=== PATIENT | female | born 1940 | race Caucasian/White ===

== ENCOUNTER 2019-01-14 01:05 | Inpatient (IN) ==
[2019-01-14] MEDS ORDERED: MORPHINE IV ONE (01:08)
[2019-01-14] MEDS ORDERED: ZOFRAN IV ONE (01:08)
[2019-01-14] MEDS ORDERED: PEPCID IV ONE (01:08)
[2019-01-14] MEDS ORDERED: SODIUM CHLORIDE 0.9% INJ ONE (01:08)
[2019-01-14] MEDS ORDERED: NS 1,000 ML IV ONE (01:09)
[2019-01-14] MEDS ORDERED: HUMULIN R IV ONE (01:10)
[2019-01-14 01:50] LABS: BASO# 0.03 X1000 (0.0-0.2); BASO% 0.1 % (0.0-0.8); EOS# 0.03 X1000 (0.0-0.7); EOS% 0.1 % (0.0-10.0); HEMATOCRIT 47.3 % (37.0-47.0); HEMOGLOBIN 15.5 g/dL (12.0-16.0); IMM GRAN# 0.05 X1000 (0.0-0.04); IMM GRAN% 0.2 % (0.0-0.5); LYMPH# 1.46 X1000 (1.2-3.4); LYMPH% 7.1 % (20.5-51.1); MCH 28.3 PG (27-31); MCHC 32.8 g/dL (33-37); MCV 86.5 FL (81-99); MONO# 2.38 X1000 (0.11-0.59); MONO% 11.6 % (1.7-9.3); MPV 9.9 FL (7.4-10.4); NEUT# 16.59 X1000 (1.4-6.5); NEUT% 80.9 % (42.2-75.2); PLT 328 X1000 (130-400); RBC 5.47 XMIL (4.2-5.4); RDW 13.7 % (11.5-14.5); WBC 20.54 X1000 (4.8-10.8)
[2019-01-14] MEDS ORDERED: ZOSYN 3.375 GM in NS 50 ML IV ONE (01:51)
[2019-01-14 02:02] LABS: INR 1.04; PROTIME 14.1 Seconds (11.0-16.0)
[2019-01-14 02:24] LABS: ACETONE SERUM NEGATIVE (NEGATIVE)
[2019-01-14 02:26] LABS: AGAP 20; ALBUMIN 4.8 g/dL (3.5-5.0); ALKALINE PHOSPHATASE 85 U/L (32-104); BUN 21 mg/dL (8-22); CALCIUM 10.6 mg/dL (8.8-10.2); CHLORIDE 97 mmol/L (98-107); COSMO 298; CREATININE 0.7 mg/dL (0.5-0.9); ESTIMATED GFR > 60; GLUCOSE 355 mg/dL (70-104); GOT 27 U/L (10-30); GPT 31 U/L (10-36); LIPASE 80 U/L (13-60); MAGNESIUM 2.3 mg/dL (1.5-2.7); POTASSIUM 3.9 mmol/L (3.5-5.1); SODIUM 141 mmol/L (136-145); TCO2 24 mmol/L (25-35); TOTAL PROTEIN 7.9 g/dL (6.3-8.3)
[2019-01-14 02:38] LABS: BILIRUBIN URINE NEGATIVE (NEGATIVE); BLOOD URINE NEGATIVE (NEGATIVE); CLARITY CLEAR (CLEAR); COLOR YELLOW; KETONE URINE 1+(Small) mg/dL (NEGATIVE); LEUKOCYTES URINE NEGATIVE (NEGATIVE); NITRITE URINE NEGATIVE (NEGATIVE); PROTEIN URINE TRACE mg/dL (NEGATIVE); SP GRAVITY URINE 1.015; UROBILINOGEN URINE NORMAL
[2019-01-14 02:44] LABS: URINE BACTERIA 2+ /HFP; URINE EPITHELIAL CELLS <10 /HPF (<10); URINE RBC <10 /HPF (<10); URINE SOURCE CATH; URINE WBC <10 /HPF (<10)
--- NOTE | 2019-01-14 04:16 | PROVIDER DOCUMENTATION ---
This chart was entered by Taylor Juan Scribe, acting as scribe for Rohit Irene MD. HPI-Abdominal Pain/GI Problem - General Chief Complaint: Abdominal Pain Stated Complaint: abdominal pain Time Seen by Provider: 01/14/19 01:05 Source: patient Allergies/Adverse Reactions: Patient Allergies Allergy/AdvReac Type Severity Reaction Status Date / Time No Known Allergies Allergy Verified 01/14/19 01:15 Home Medications: Home Medication List Medication Instructions Recorded Confirmed Last Taken Type Dapagliflozin Propanediol [Farxiga] 10 mg PO DAILY 01/14/19 01/14/19 Unknown History Hydrochlorothiazide 25 mg PO DAILY 01/14/19 01/14/19 Unknown History Hydrocodone/APAP 5 mg/325 mg 1 tab PO DAILY PRN 01/14/19 01/14/19 Unknown History [[place]-5] Metformin HCl [Metformin HCl ER] 500 mg PO DAILY 01/14/19 01/14/19 Unknown History Metoprolol Succinate E.r. [Toprol 50 mg PO DAILY 01/14/19 01/14/19 Unknown History Xl] Omeprazole 20 mg PO DAILY 01/14/19 01/14/19 Unknown History Simvastatin 40 mg PO QHS 01/14/19 01/14/19 Unknown History Sitagliptin Phos/Metformin HCl 1 each PO DAILY 01/14/19 01/14/19 Unknown History [Janumet Xr 100-1,000 mg Tablet] - History of Present Illness-ABD Nature of Presenting Problems: pt is a 78 yr old female presenting via EMS with complaint of diffuse abdominal pain, nausea, vomiting(self-induced)pt reports hx of bowel obstruction and colon CA, last obstruction 2 yrs ago. pt admits last BM was yesterday, no passing gas since. pt is inducing vomiting to relieve pressure Abdominal Pain Onset Location: reports: generalized abdomen Pain Radiation: reports: no radiation Quality of Pain: reports: fullness, pressure Severity in ED: reports: severe Onset/Duration: reports: this afternoon Timing: reports: still present, getting worse Activities at Onset: reports: light activity Exposure to sick contacts?: No Modifying Factors: improves with: defecating (unable to produce bowel movement) , other medication (Zofran given by EMS with no relief), vomiting (minimal, brief relief). worse with: eating (unable to eat) Associated Symptoms: reports: constipation, loss of appetite, nausea, vomiting. denies: fever/chills, genitourinary problems Last BM: 24 hours ago Dark Stools Present?: reports: none noticed Rectal Bleeding: reports: none Rectal Pain: reports: none Bruising or Bleeding Gums?: No Similar Symptoms Previously?: Yes Recently seen or treated by another doctor?: No Review of Systems - Adult - REVIEW OF SYSTEMS - ADULT Constitutional: denies: chills, fever Eyes: reports: no symptoms reported Ears, Nose, Mouth & Throat: reports: no symptoms reported Cardiovascular: denies: chest pain, palpitations, syncope Respiratory: denies: cough, shortness of breath Gastrointestinal: reports: abdominal pain, constipation, nausea, poor appetite, vomiting. denies: diarrhea Genitourinary: denies: dysuria, frequency, flank pain Musculoskeletal: reports: no symptoms reported Integumentary: reports: no symptoms reported Neurological: denies: dizziness/vertigo, headache/migraines Psychiatric: reports: no symptoms reported Endocrine: reports: no symptoms reported Hematologic/Lymphatic: reports: no symptoms reported Allergic/Immunologic: reports: no symptoms reported All Other Systems: Reviewed and Negative Past History - Adult - PAST MEDICAL HISTORY-ADULT Review of Records: reports: Old Records Reviewed, Nursing Assessment Review, Medications Reviewed, Social history reviewed & non-contributory. Major Childhood Illnesses: reports: denies history Cardiovascular: reports: denies history Respiratory: reports: denies history Gastrointestinal: reports: denies history Obstetrical/Gynecological: reports: denies history Genitourinary: reports: denies history Musculoskeletal: reports: denies history Neurological: reports: denies history Endocrine/Immune: reports: denies history Other Conditions: reports: denies history - IMMUNIZATION STATUS Childhood Immunizations: See Nurse Assessment Flu Vaccine: See Nurse Assessment - FAMILY HISTORY Family History: reviewed, not pertinent - SOCIAL HISTORY Living Situation: alone Physical Exam-General - PHYSICAL EXAM-ADULT Initial Vital Signs Reviewed: Yes - CONSTITUTIONAL General Appearance: alert, no apparent distress - EYES Eyes: PERRL/EOMI - HEAD, EARS, NOSE, MOUTH & THROAT HENMT: normocephalic/atraumatic, moist mucous membranes - NECK Neck: non-tender, full range of motion, supple, normal inspection - RESPIRATORY Respiratory: chest non-tender, lungs clear, normal breath sounds, no pleuratic chest pain, no respiratory distress, no accessory muscle use - CARDIOVASCULAR Cardiovascular: normal peripheral pulses, regular rate, rhythm, no edema - GASTROINTESTINAL (ABDOMEN) Abdominal Exam: soft, no organomegaly, no pulsatile mass, abnormal bowel sounds (hyperactive bowel sound on left, absent bowel sounds on right), distended, tenderness (minimal diffuse tenderness with deep palpation) - LYMPHATIC Lymphatic: no adenopathy - MUSCULOSKELETAL Back Exam: normal inspection, no CVA tenderness, no vertebral tenderness Extremity: normal range of motion, non-tender, normal inspection - SKIN Integumentary: normal color, normal turgor, warm/dry - NEUROLOGIC Neurologic: grossly normal, no motor/sensory deficits - PSYCHIATRIC Psych/Mental Status: normal mood/affect, normal thought content, normal thought process, oriented x 3 Progress - PLAN OF CARE/RESULTS Progress/Plan/Lab Results: Vital Signs - 8 hr 01/14/19 01:06 Temperature 98.2 F Pulse Rate 89 Respiratory Rate 18 Blood Pressure 157/81 O2 Sat by Pulse Oximetry 94 L Orders Category Date Time Status Jiménez Cath Insertion ORDERED Care 01/14/19 01:06 Active NG/OG/Feeding Tube Insertion ORDERED Care 01/14/19 01:08 Active Saline Loc NOW Care 01/14/19 01:06 Active CHEST-PORTABLE [RAD] Stat Exams 01/14/19 01:[address] ABD/PELVIS W/IV CONT ONLY [CT] Stat Exams 01/14/19 01:08 Ordered ACETONE SERUM [CHEM] Stat Lab 01/14/19 01:10 Received BLOOD CULTURE [BLDCUL] Stat Lab 01/14/19 01:24 Ordered CBC WITH ELECTRONIC DIFF [HEME] Stat Lab 01/14/19 01:10 Results COMPREHENSIVE METABOLIC PANEL [CHEM] Stat Lab 01/14/19 01:10 Received LACTATE, PLASMA [CHEM] Stat Lab 01/14/19 01:10 Received LIPASE [CHEM] Stat Lab 01/14/19 01:10 Received MAGNESIUM [CHEM] Stat Lab 01/14/19 01:10 Received PROTIME WITH INR [COAG] Stat Lab 01/14/19 01:10 Received TROPONIN T Stat Lab 01/14/19 01:[address] W/POSS RFLX CULT [URINALYSIS] Stat Lab 01/14/19 01:07 Uncollected 0.9% Sodium Chloride Inj [Ns] 1,000 ml Med 01/14/19 01:09 Active IV 999 mls/hr Famotidine [Pepcid] Med 01/14/19 01:08 Discontinued 20 mg IV NOW ONE Insulin Human Regular [Humulin R] Med 01/14/19 01:10 Discontinued 5 unit IV NOW ONE Morphine Med 01/14/19 01:08 Discontinued 4 mg IV NOW ONE Ondansetron [Zofran] Med 01/14/19 01:08 Discontinued 4 mg IV NOW ONE Sodium Chloride 0.9% Med 01/14/19 01:08 Discontinued 5 - 10 ml INJ NOW ONE EKG [EKG] Stat Ther 01/14/19 01:06 Ordered Result Diagrams: 01/14/19 01:10 01/14/19 01:10 - REASSESSMENT Reassessment #1 Time Reassessed: 02:49 Status: improving (better after IVF and pain meds, NGT has 250ml green fluids out. Awaiting CT scan. Also givne IV insulin for hyperglycemia) Reassessment #2 Time Reassessed: 03:36 Status: improving - EKG 1 Time of EKG reading by physician:: 01:47 EKG Read and Signed by:: Rohit Irene EKG Interpretation (*Must complete 3 of following elements*): Abnormal Rate: 91 Rhythm: nsr [place]: normal QRS: poor R wave progression ND Interval: normal ST Wave: non-specific ST changes Comments: artifact present - CT/MRI 1 CT Study: Abdomen (and pelvis with IV contrast) Impression: Abnormal, See EMR Report (Per Dr. Dewey, [facility] [place], there are MUltiple dilated small bowel loops measuring up to 4.2cm with focal transition potin in the lower pelvis adjacent to multiple surgical clips. Distal small bowel is decompressed. Findings are consitent with a high grade SBO.) - CONSULTS/PCP/HOSPITALIST Notification #1 *Consult/PCP/Hospitalist*: Radhika Time Discussed: 03:36 Reason/Comments: Wants transfer to [facility], admit to Hospitalist Consult Disposition: Admit #2 Consult: Chapo paged at [id number] Time Discussed: 04:16 (will admit) Departure - Departure Date of Disposition Decision: 01/14/19 Time of Disposition Decision: 03:38 DIAGNOSIS: Small bowel obstruction due to postoperative adhesions, Type 2 diabetes mellitus with hyperglycemia, without long-term current use of insulin Disposition: ADMITTED INPATIENT 09 Certified Medical Emergency: Emergent Condition: Fair Referrals and Follow-Ups: Emeterio San MD [Primary Care Provider] - - Critical Care Note This patient required my direct & personal management of CC.: Yes Total Time (mins): 38 Critical Care Statement: This patient required my direct personal management to treat or rule out processes, the absence of which, could potentiallly result in sudden, clinically significant life or limb threatening deterioration. Attestation - Physician/ LINA Attestation Patient care was provided by Advanced Practice Provider:: No The physician spent face to face time with patient:: Yes Advanced Practice Provider documentation review:: Supervising physician onsite and consulted in the evaluation and care of this patient. The physician did have a face to face encounter with the patient. This chart was documented by the indicated scribe, (Taylor Juan, Brittney) and accurately reflects the services I performed and decisions made by me, Rohit Irene MD, as attested by the provider's signature.
--- NOTE | 2019-01-14 07:09 | Diag Imaging Result Doc PS360 ---
EXAM: CT ABD/PELVIS W/IV CONT ONLY 01/14/2019 HISTORY: sbo TECHNIQUE: This exam was performed using automated exposure control, adjustment of mA or kV according to patient size, and/or use of iterative reconstruction technique. COMMENT: There are no previous studies available for comparison. There is some dependent atelectasis in both lung bases. There is an NG tube with its tip in the stomach. The liver is somewhat hypodense suggesting fatty change. The spleen is not enlarged. The adrenal glands are normal in appearance. The pancreas is unremarkable. There is some stool and gas in the colon without evidence of dilatation. There are multiple distended small bowel loops. The aorta is not distended. There is no evidence of significant adenopathy. Pelvis: There is stool in the distal colon. There is a Jiménez catheter in the urinary bladder. There are multiple surgical clips present in the presacral space. Near this there is a transitional zone proximal to which there is dilatation and fecalized small bowel contents. There are severe degenerative disc changes and facet arthropathy in the lumbar spine with spinal stenosis at L4-5. IMPRESSION: Distal small bowel obstruction. This may be on the basis of adhesions. Electronically signed by Boo Montiel 01/14/2019 7:06 AM
--- NOTE | 2019-01-14 07:24 | Diag Imaging Result Doc PS360 ---
EXAM: CHEST-PORTABLE 01/14/2019 HISTORY: Tube placement TECHNIQUE: AP portable at 0324 COMMENT: There are no previous studies available for comparison. There is ill-defined opacity at the right base obscuring the hemidiaphragm. The inspiration is generally suboptimal. The NG tube is visible below the diaphragm. IMPRESSION: Atelectasis and/or pneumonia right lower lobe. Electronically signed by Boo Montiel 01/14/2019 7:21 AM
--- NOTE | 2019-01-14 07:54 | EKG Report ---
Test Performed on : 01/14/2019 01:41:35 AM Test Reason : abd pain Blood Pressure : / mmHG Vent. Rate : 091 BPM Atrial Rate : 091 BPM P-R Int : 170 ms QRS Dur : 078 ms QT Int : 382 ms P-R-T Axes : 063 036 058 degrees QTc Int : 469 ms Normal sinus rhythm. Cannot rule out Anterior infarct , age undetermined Abnormal ECG No previous ECGs available Unconfirmed Result
[2019-01-14] MEDS: MORPHINE IV PRN ×4 (09:16→19:13)
[2019-01-14] MEDS: ZOFRAN IV PRN (09:21)
--- NOTE | 2019-01-14 09:51 | HISTORY AND PHYSICAL ---
PRIMARY CARE PHYSICIAN: Dr. San. CHIEF COMPLAINT: Abdominal pain with nausea and vomiting for the past several days that has progressively worsened. HISTORY OF PRESENTING ILLNESS: This is a 78-year-old female who presents to [facility] via EMS with complaints of diffuse abdominal pain , nausea and self induced vomiting that she is doing to try to relieve the pressure in her abdomen. She states that she has had a history of bowel obstructions in the past and colon cancer. Her last bowel obstruction was 2 years ago. She states she had a bowel movement on Saturday morning, and the pain began Saturday night and has not passed any gas since. Workup showed a CT of the abdomen and pelvis with a distal small bowel obstruction that could be on the basis of adhesions so she has an NG tube to low intermittent suction, and is being admitted for further evaluation and treatment. PAST MEDICAL HISTORY: Small-bowel obstruction, diabetes type 2, hyperlipidemia , hypertension, and GERD. PAST SURGICAL HISTORY: Colon Resection FAMILY HISTORY: Reviewed and noncontributory. SOCIAL HISTORY: She currently lives with her . Denies any tobacco, alcohol or illicit drug use. ALLERGIES: She has no known drug allergies. HOME MEDICATIONS: Will all be held at this time, but she takes Farxiga 10 mg p.o. daily, hydrochlorothiazide 25 mg p.o. daily, [place] 5 one p.o. daily, metformin 500 mg p.o. daily, Toprol- XL 50 mg p.o. daily, omeprazole 20 mg p.o. daily, simvastatin 40 mg p.o. at bedtime and Janumet XR 100/1000 1 p.o. daily. LABORATORY DATA: White blood cell count of 20.54, hemoglobin 15.5, hematocrit 47.3, and platelets 328,000. PT and INR of 14.1 and 1.04. Sodium 141, potassium 3.9, chloride 97, CO2 24, BUN of 21, creatinine 0.7, glucose 355, and magnesium 2.3. Lipase of 80. Plasma lactate 2.5. Troponin was negative. Urinalysis was negative except for 2+ bacteria. Acetone level was negative. Chest x- ray showed atelectasis and/or pneumonia in the right lower lobe. Abdomen and pelvic CT showed an impression of a distal small-bowel obstruction that may be on the basis of adhesions. EKG normal sinus rhythm at 91. REVIEW OF SYSTEMS: She denied any fever, chills, blurred vision, dizziness, chest pain, coughing, and shortness of breath. She was positive for diffuse abdominal pain, nausea, self-induced vomiting to relieve the abdominal pain. Denied any diarrhea, but she does have some issues with constipation, and denied any burning or hurting with urination. PHYSICAL EXAMINATION: VITAL SIGNS: On arrival, she had a temperature of 98.2 degrees, pulse 89, respirations 18, blood pressure 157/81 and saturating 94% on room air. GENERAL: This is a 78-year-old female lying in the bed and answers questions appropriately. HEENT: Normocephalic, atraumatic. Normal ENT inspection. Patient is noted to have a nasogastric tube to the left nares to low intermittent suction. Normal ENT inspection. Oropharynx and nares are clear. NECK: Normal inspection. Normal range of motion. LUNGS: Clear to auscultation bilaterally. Equal lung expansion. Chest wall movement noted. HEART: Regular rate and rhythm. No murmurs, rubs, or gallops. ABDOMEN: She has some diffuse tenderness with deep palpation. Absent bowel sounds noted. Distended. MUSCULOSKELETAL: She has 5/5 strength x4 extremities. NEUROLOGICAL: The cranial nerves 2-12 appear grossly intact. ASSESSMENT: 1. Small bowel obstruction. 2. Right lower lobe pneumonia. 3. Leukocytosis. 4. Diabetes type 2. PLAN: She will be admitted to the [facility]. We will consult surgery, and placed an NG tube to low intermittent suction, NPO. Give morphine 2 mg IV q.2 hours p.r.n., Zofran 4 mg IV q.6 hours p.r.n. She was placed on Zosyn 3.375 g IV q.6. Normal saline at 125 mL an hour. Recheck CBC and BMP in the morning. Again, we will hold all of her home medications. Further orders after being seen by attending and by the performance consultant. Dictated by LEVAR Law for Wiley Benjamin MD cc: LEVAR Covington MD [facility]
--- NOTE | 2019-01-14 10:19 | HISTORY AND PHYSICAL ---
HISTORY OF PRESENT ILLNESS: The patient came in with abdominal pain, nausea, vomiting. She says she has had issues off and on with this for many years. She had a colon resection for colon cancer in 1990 and she has had issues off and on since that time today. She has had bowel movements but they are pencil thin, but that has been an issue since she has had her surgery. She has had nausea and she has induced vomiting for the last several days just to relieve her discomfort. Workup in the ER revealed that she has small bowel obstruction. Abdominal exam is soft, protuberant. No guarding. No rebound. Bowel sounds I could detect, but she has an NG in place on suction, so it was difficult to note. Otherwise, exam was unremarkable. [place] [address], sugar of 355. Small-bowel obstruction per CT scan with fecalized contents in her small bowel and in her rectum or in her distal colon. IMPRESSION AND PLAN: We will admit for small-bowel obstruction. NG is in place, and work on mobilizing some of the stool, it may help with her issue as she may indeed need surgery. Dr. Garrido has evaluated patient and recommends transferred to [facility] in case she needs surgical intervention. We will continue treatments and follow closely. Her chest x-ray shows atelectasis versus a right lower lobe infiltrate. She was already put on antibiotics previously, but we will maintain Zosyn for the time being. I guess also pulmonary toilet to the best that we can do with her multiple other issues. This is a [id number] encounter note with Elvia Saldivar. We will also start some bisacodyl to see if that may aid with some mobilization of the stool if possible. Dr. Garrido has already evaluated the patient. cc: Wiley Benjamin MD
--- NOTE | 2019-01-14 11:34 | GENERAL SURGERY CONSULTATION ---
DATE: 01/14/2019 HISTORY OF PRESENT ILLNESS: This is a 78-year-old female who has a history of colon cancer treated surgically in the early . She has had intermittent obstructions in the past and resolved without operation. She presents with a several-day history of colicky abdominal discomfort, nausea/vomiting, decrease in bowel movements [*] through the [place] [facility] where CT scan was obtained and this suggested bowel obstruction. NG tube was placed. She denies any bleeding. She has had colonoscopies recently within the year that had a couple polyps and was recommended 3- year follow-up. MEDICAL HISTORY: Diabetes, hypertension, hyperlipidemia, history of colon cancer. SURGICAL HISTORY: Colon resection and I believe a vaginal hysterectomy. SOCIAL HISTORY: No tobacco, alcohol, or drugs. She is . She is here with her . FAMILY HISTORY: Reviewed and noncontributory. REVIEW OF SYSTEMS: Ten points negative unless otherwise mentioned in HPI. PHYSICAL EXAMINATION: Vital signs: Temperature is 98.2 degrees, pulse 82, blood pressure is 132/89, O2 saturation high 90s. General: She is alert. HEENT: There is a nasogastric tube in place with gastric contents. Cardiovascular: Normal rate. Pulmonary: No increased work of breathing. Abdomen: Soft. There is a lower midline incision, mildly distended, but nontender. Integument: Warm and dry. Psychiatric: Appropriate affect. Neurologic: No gross deficits. Extremities: Some trace lower extremity edema. Lymphatic: No cervical, axillary, or inguinal adenopathy. DIAGNOSTIC STUDIES: White count 20, hematocrit 47, platelets 328,000. Creatinine is 0.7, bilirubin is 1.10. AST, ALT, alkaline phosphatase normal. Lipase is mildly elevated at 80. Lactate is 2.5. Troponins are negative. CT scan been reviewed. ASSESSMENT AND PLAN: This is a 78-year-old female with bowel obstruction. She has a history of colon cancer. She has had colonoscopies that have not showed evidence of recurrence, and her resection was many years ago. I do not see any evidence of recurrent disease now, but she does have bowel obstruction most likely from adhesions. We will keep the nasogastric tube decompressed, n.p.o., and optimizing her electrolytes. We will follow along. If she feels to progress over the next couple of days, she may require exploration. We discussed this, but we will hold off for now. cc: Vince Garrido MD
[2019-01-14] MEDS ORDERED: TYLENOL PO PRN (12:21)
[2019-01-14] MEDS ORDERED: NS 1,000 ML IV SCH (12:21)
[2019-01-14] MEDS ORDERED: DULCOLAX PR ONE (12:21)
[2019-01-14] MEDS ORDERED: DUONEB (A & A) INH PRN (12:21)
--- NOTE | 2019-01-14 13:21 | PROGRESS NOTE ---
DATE: 01/14/2019 ADDENDUM: She is a 78-year-old, transferred here from [place]. She presented with abdominal pain that started on Saturday night. This is Saturday now. She has had off and on trouble with nausea and vomiting and she assumed it was a small bowel obstruction, usually would get better with time and she took some pain medicine she said, but recently it has gotten worse. This time it did not seem to resolve and so came to [place]. Dr. Rodríguez did the original surgery back in 1990 for colon cancer and then she had hemorrhoid surgery as well back, I think, in [address] Cristofer Rodríguez. PAST MEDICAL HISTORY: She has diabetes mellitus type 2, hypertension, hyperlipidemia. ALLERGIES: She has no known drug allergies. FAMILY HISTORY: Mother with CABG and history of a total knee arthroplasty. Dad with total knee arthroplasty. She has an NG tube in, she is more comfortable. PHYSICAL EXAMINATION: Abdomen: She has no bowel sounds in any quadrants of the abdomen. Lungs: Clear anterolateral. Neck: No distended neck veins. Extremities/pulses: Carotid, radial and femoral pulses 2+ and symmetrical. No pedal edema. Skin: Warm and dry. Conjunctiva pink. REVIEW OF LABORATORY DATA: White count 30626, hematocrit 47, platelet count 328,000. Chemistry: Sodium 141, potassium 3.9, chloride 97, BUN 21, creatinine 0.7. Lipase was 80. Albumin 4.8. ASSESSMENT AND PLAN: 1. Admitted with small bowel obstruction. We have an NG tube, and Dr. Rodríguez to follow. I will give her some feeding. We will start Clinimix at 85 mL an hour and hold her n.p.o. otherwise with NG to low wall suction. 2. Diabetes mellitus type 2. Make sure we patterned sugars. Put her on sliding scale. 3. History of hypertension, it is questionable. We will watch her blood pressure. 4. History of hypercholesterolemia. Aware. REVIEW OF ORDERS/MEDICATIONS AT HOME: She is on dapagliflozin 10 mg p.o. daily, hydrochlorothiazide 25 mg a day, hydrocodone 5 mg a day, metformin 500 mg a day, omeprazole 20 mg a day, simvastatin 40 mg at bedtime, sitagliptin or Janumet which is 100-1000 one a day. We are going to hold those for now. cc: Khurram Byrd MD
[2019-01-14] MEDS: ZOSYN 3.375 GM in NS 50 ML IV SCH ×2 (13:41→21:22)
[2019-01-14] MEDS: SODIUM CHLORIDE 0.9% INJ SCH (13:42)
[2019-01-14] MEDS: PROTONIX IV SCH (13:42)
[2019-01-14] MEDS: HUMULIN R SUBQ SCH ×3 (13:44→21:21)
[2019-01-14] MEDS: CLINIMIX E 4.25%-5% SOLUTION 1,000 ML IV SCH (13:45)
[2019-01-14] MEDS: DUONEB (A & A) INH SCH ×3 (15:45→21:30)
[2019-01-14] MEDS: GYNE-LOTRIMIN VAGINAL CREAM VAG SCH (21:21)
[2019-01-15] MEDS: PROTONIX IV SCH ×2 (01:38→15:50)
[2019-01-15] MEDS: SODIUM CHLORIDE 0.9% INJ SCH (01:39)
[2019-01-15] MEDS: ZOSYN 3.375 GM in NS 50 ML IV SCH ×3 (01:39→18:36)
[2019-01-15] MEDS: CLINIMIX E 4.25%-5% SOLUTION 1,000 ML IV SCH (01:42)
[2019-01-15] MEDS: MORPHINE IV PRN ×5 (01:42→22:09)
[2019-01-15] MEDS: DUONEB (A & A) INH SCH ×4 (03:32→22:48)
[2019-01-15 07:26] LABS: BASO# 0.03 X1000 (0.0-0.2); BASO% 0.3 % (0.0-0.8); EOS# 0.03 X1000 (0.0-0.7); EOS% 0.3 % (0.0-10.0); HEMATOCRIT 47.4 % (37.0-47.0); HEMOGLOBIN 14.4 g/dL (12.0-16.0); IMM GRAN# 0.03 X1000 (0.0-0.04); IMM GRAN% 0.3 % (0.0-0.5); LYMPH% 14.2 % (20.5-51.1); MCHC 30.4 g/dL (33-37); MCV 92.2 FL (81-99); MONO# 2.05 X1000 (0.11-0.59); MONO% 20.8 % (1.7-9.3); MPV 9.9 FL (7.4-10.4); NEUT% 64.1 % (42.2-75.2); PLT 255 X1000 (130-400); RBC 5.14 XMIL (4.2-5.4); RDW 14.3 % (11.5-14.5); WBC 9.84 X1000 (4.8-10.8)
[2019-01-15 07:33] LABS: HEMOGLOBIN A1C 7.8 % (4.8-6.0)
[2019-01-15 07:42] LABS: AGAP 15; BUN 33 mg/dL (8-22); CALCIUM 10.1 mg/dL (8.8-10.2); CHLORIDE 103 mmol/L (98-107); COSMO 305; CREATININE 0.8 mg/dL (0.5-0.9); ESTIMATED GFR > 60; GLUCOSE 289 mg/dL (70-104); MAGNESIUM 2.4 mg/dL (1.5-2.7); POTASSIUM 4.2 mmol/L (3.5-5.1); SODIUM 144 mmol/L (136-145); TCO2 26 mmol/L (25-35)
--- NOTE | 2019-01-15 09:54 | PROGRESS NOTE ---
DATE: 01/15/2019 SUBJECTIVE: The patient's night was still pretty rough. She has not had a bowel movement. Still some nausea. OBJECTIVE: Vital Signs: Temperature 98.2 degrees, pulse 114, respirations 20, blood pressure 142/75. Urine output is 1300 mL. HEENT: Pupils are equal and round. Lungs: Clear in all lung rosales. Cardiovascular: Regular rhythm and rate without murmur or S3. LABORATORY DATA: Blood sugar 260, 294. ASSESSMENT AND PLAN: 1. Small bowel obstruction. Continue nasogastric tube. I have her on intravenous Clinimix. 2. Diabetes mellitus type 2. Will continue to monitor sugars. 3. History of hypertension. 4. History of hypercholesterolemia. 5. Distant history of colon cancer with right colon resection. She has had colonoscopies, did not show any evidence of recurrence and her resection was many years ago. No evidence of recurrent disease now. She was sent down to Radiology this morning for a CT of the abdomen and pelvis with contrast. cc: Khurram Byrd MD
[2019-01-15] MEDS: ZOFRAN IV PRN (10:36)
[2019-01-15] MEDS: HUMULIN R SUBQ SCH ×5 (10:37→22:09)
--- NOTE | 2019-01-15 12:19 | Diag Imaging Result Doc PS360 ---
SMALL BOWEL SERIES ONLY - 01/15/2019 INDICATION: small bowel obstruction TECHNIQUE: COMPARISON: CT from 01/14/2019 FINDINGS: Contrast was introduced via the existing nasogastric tube. There is severe dilation of the majority of the proximal small bowel. Over three hours, this does not cross through the transition point of obstruction on the recent CT. IMPRESSION: Severe distal small bowel obstruction stable from the prior CT. Electronically signed by Davey Burciaga 01/15/2019 12:17 PM
[2019-01-15] MEDS: DULCOLAX PR SCH (15:36)
[2019-01-15] MEDS: GYNE-LOTRIMIN VAGINAL CREAM VAG SCH (15:51)
--- NOTE | 2019-01-15 17:38 | GENERAL SURGERY PROGRESS NOTE ---
DATE: 01/15/2019 SUBJECTIVE: No pain. OBJECTIVE: No fevers. Heart rate [*] 100, blood pressure 156/74, oxygen saturation 95%. General: She is alert. NG tube output remains quite bilious. Abdomen: Soft, less distended, but nontender. LABORATORY: White count is down to 9, hematocrit 47. Creatinine 0.8, glucose has been in the 200s. ASSESSMENT AND PLAN: This is a 78-year-old female with bowel obstruction. It sounds like she has had recurrent intermittent symptoms. I have reviewed her small bowel follow-through ordered this morning. It does show persistent obstruction with no passage of contrast in the colon. I think given these findings, we need to go to the operating room tomorrow for exploratory laparotomy and lysis of adhesions with all indicated procedures. I have had a long discussion with the patient and her family regarding the possibilities of bleeding, infection, possibility that she could have a bowel obstruction in the future that she may require a bowel resection. She understands all of this. cc: Vince Garrido MD
[2019-01-16] MEDS: PROTONIX IV SCH ×2 (00:19→20:07)
[2019-01-16] MEDS: SODIUM CHLORIDE 0.9% INJ SCH (00:19)
[2019-01-16] MEDS: ZOSYN 3.375 GM in NS 50 ML IV SCH ×4 (00:19→20:01)
[2019-01-16] MEDS: CLINIMIX E 4.25%-5% SOLUTION 1,000 ML IV SCH ×3 (00:20→22:33)
[2019-01-16] MEDS: DUONEB (A & A) INH SCH ×4 (03:29→22:50)
[2019-01-16] MEDS: MORPHINE IV PRN ×4 (05:27→22:33)
[2019-01-16] MEDS: HUMULIN R SUBQ SCH ×4 (06:30→22:44)
[2019-01-16] MEDS: ZOFRAN IV PRN (08:03)
--- NOTE | 2019-01-16 09:52 | PROGRESS NOTE ---
DATE: 01/16/2019 SUBJECTIVE: Ms. Parham has really no improvement. They are planning on doing exploratory surgery and probably lysis of adhesions this afternoon. OBJECTIVE: Temperature 98.9 degrees, pulse 112, respirations 24 and blood pressure 155/84. Pupils are equal and round. No distended neck veins. Lungs are clear in all lung rosales. Cardiovascular exam with regular rhythm and rate without murmur or S3. Urine output is 4000 mL. Blood sugars 294, 294 and 334. LABORATORY: Labs from yesterday reviewed. Hematocrit 43, hemoglobin 12, white count had come down from 20,000 to 9840. Platelet count 255,000. Electrolytes unremarkable. Creatinine 0.8, sodium 144, potassium 4.2, chloride 103 and BUN 33. ASSESSMENT AND PLAN: 1. Small-bowel obstruction. It sounds like she has had recurrent intermittent symptoms. Small bowel follow-through does show persistent obstruction, and no passage of contrast in the colon. Plan on exploratory lap per Dr. Garrido today. Review of her current orders, I do not see any change. She is on Clinimix 85 mL an hour. We are giving her Zosyn 3.375 g IV q.6 hours, Protonix 40 mg IV q.12. 2. Diabetes mellitus type 2. Sugars under good control. 3. Hypertension. Blood pressure is well controlled. 4. Hypercholesterolemia. 5. Distant history of colon cancer with right colon resection. At this point, I do not see any sign of recurrence. cc: Khurram Byrd MD
[2019-01-16] MEDS ORDERED: FENTANYL ONE (10:06)
[2019-01-16] MEDS ORDERED: XYLOCAINE-MPF 2% ONE (10:06)
[2019-01-16] MEDS ORDERED: NORCURON ONE (10:06)
[2019-01-16] MEDS ORDERED: QUELICIN (DOSE) ONE (10:06)
[2019-01-16] MEDS ORDERED: DIPRIVAN 1% ONE (10:06)
[2019-01-16 10:34] LABS: AGAP 13; BUN 33 mg/dL (8-22); CALCIUM 10.1 mg/dL (8.8-10.2); CHLORIDE 109 mmol/L (98-107); COSMO 314; CREATININE 0.6 mg/dL (0.5-0.9); ESTIMATED GFR > 60; GLUCOSE 296 mg/dL (70-104); POTASSIUM 3.8 mmol/L (3.5-5.1); SODIUM 149 mmol/L (136-145); TCO2 27 mmol/L (25-35)
[2019-01-16 11:07] LABS: BASO# 0.03 X1000 (0.0-0.2); BASO% 0.3 % (0.0-0.8); EOS# 0.04 X1000 (0.0-0.7); EOS% 0.4 % (0.0-10.0); HEMOGLOBIN 14.7 g/dL (12.0-16.0); IMM GRAN# 0.08 X1000 (0.0-0.04); IMM GRAN% 0.8 % (0.0-0.5); LYMPH# 1.97 X1000 (1.2-3.4); LYMPH% 19.7 % (20.5-51.1); MCH 27.9 PG (27-31); MCHC 30.6 g/dL (33-37); MCV 91.1 FL (81-99); MONO# 1.65 X1000 (0.11-0.59); MONO% 16.5 % (1.7-9.3); NEUT# 6.22 X1000 (1.4-6.5); NEUT% 62.3 % (42.2-75.2); PLT 260 X1000 (130-400); RBC 5.27 XMIL (4.2-5.4); RDW 14.2 % (11.5-14.5); WBC 9.99 X1000 (4.8-10.8)
[2019-01-16] MEDS: DULCOLAX PR SCH (11:53)
[2019-01-16] MEDS ORDERED: EXPAREL 1.3% ONE (12:05)
[2019-01-16] MEDS ORDERED: MARCAINE 0.5% ONE (12:05)
[2019-01-16 13:22] LABS: URINE SOURCE CATH
[2019-01-16 13:46] LABS: BILIRUBIN URINE NEGATIVE (NEGATIVE); BLOOD URINE TRACE (NEGATIVE); COLOR YELLOW; GLUCOSE URINE >1000 mg/dL (NEGATIVE); KETONE URINE 20 mg/dL (NEGATIVE); LEUKOCYTES URINE NEGATIVE (NEGATIVE); NITRITE URINE NEGATIVE (NEGATIVE); PH URINE 5.5; PROTEIN URINE TRACE mg/dL (NEGATIVE); SP GRAVITY URINE 1.042; TURBIDITY URINE TURBID (CLEAR); UROBILINOGEN URINE NORMAL (NORMAL)
[2019-01-16 13:47] LABS: UR EPITHELIAL CELLS <10 /HPF (<10); URINE BACTERIA NEGATIVE /HPF; URINE RBC <10 /HPF (<10); URINE WBC <10 /HPF (<10)
[2019-01-16] MEDS ORDERED: ROBINUL ONE (13:55)
[2019-01-16] MEDS ORDERED: NEOSTIGMINE ONE (13:55)
[2019-01-16] MEDS ORDERED: BRIDION ONE (13:59)
[2019-01-16] MEDS: MORPHINE ONE (14:24)
[2019-01-16] MEDS: PHENERGAN ONE ×2 (14:30→14:35)
--- NOTE | 2019-01-16 15:35 | GENERAL SURGERY PROGRESS NOTE ---
DATE: 01/16/2019 SUBJECTIVE: No bowel function overnight. Her small-bowel follow-through showed high-grade obstruction yesterday. No fevers. OBJECTIVE: Vital signs: Low tachycardia in the low 100s. Blood pressure 155/84, oxygen saturation 92%. General: She is alert. Abdomen: Soft. Moderately distended but nontender. LABORATORY DATA: No new labs today. ASSESSMENT AND PLAN: A 78-year-old female with a high-grade small-bowel obstructions that has failed to resolve with nasogastric tube decompression. We will go to the operating room today for exploratory laparotomy. I have discussed the risks of bleeding, infection, possibility of bowel resection, anastomotic leak, possibility of an ostomy. She understands all this and consents. We will go to the operating room today. cc: Vince Garrido MD
[2019-01-16] MEDS: GYNE-LOTRIMIN VAGINAL CREAM VAG SCH (19:01)
[2019-01-16] MEDS: PERIDEX MT SCH (22:33)
[2019-01-17] MEDS: PHENERGAN ONE (00:28)
[2019-01-17] MEDS: MORPHINE ONE (00:28)
--- NOTE | 2019-01-17 00:35 | OPERATIVE NOTE ---
PROCEDURE DATE: 01/16/2019 PREOPERATIVE DIAGNOSIS: Small-bowel obstruction. POSTOPERATIVE DIAGNOSIS: Small-bowel obstruction. SURGEON: Dr. Vince Garriod. PROCEDURE PERFORMED: Exploratory laparotomy with lysis of adhesions. SPECIMENS: None. ANESTHESIA: General with a TAP block. INDICATIONS: A 78-year-old female with a history of colon resection for colon cancer, who presented with a bowel obstruction that failed nonoperative management. Small-bowel follow- through shows a high-grade obstruction. FINDINGS: There was several loops of adhesions in the pelvis from her previous surgery with proximal dilation of the small-bowel. All bowel is viable and there is no evidence of neoplastic process of the peritoneum, liver. The colon was normal appearing, as was the stomach. OPERATIVE NOTE: Risks, benefits, alternatives discussed with patient, she consented to the procedure. She was seen preoperatively and surgical site was confirmed. She was taken to the operating room, placed in supine position. General anesthesia induced without complication. All bony prominences were padded. Jiménez catheter was placed. She had a nasogastric tube. Abdomen is prepped with chlorhexidine solution, draped in usual fashion. Time-out. We made an incision in the upper midline, carrying this down to her previous scar and extended this entering the abdomen in open fashion. We took down some omental adhesions and gained wide exposure. An Wiley wound protector was placed. We eviscerated the small bowel and lysed the loops of adhesions out of the pelvis, freeing up the obstruction. There was an area that appeared to be stricture, but this dilated nicely. There was some retained food particles proximal to this, almost a bezoar that we milked proximally into the stomach to decompress the nasogastric tube. There were no serosal injuries. We irrigated the abdomen, confirmed hemostasis. There was no evidence of peritoneal disease. We placed the small bowel back in neutral position, covered this with omentum, and irrigated the abdomen until clear. Counts were correct. At this point, we closed the fascia with a #1 running looped PDS sutures, irrigating the superficial wound, closed this with surgical clips. She tolerated it well. Counts correct. She has awoken and transferred to recovery. I spoke with family. cc: Vince Garrido MD
[2019-01-17] MEDS: SODIUM CHLORIDE 0.9% INJ SCH (00:52)
[2019-01-17] MEDS: ZOSYN 3.375 GM in NS 50 ML IV SCH ×4 (00:52→20:16)
[2019-01-17] MEDS: MORPHINE IV PRN ×5 (00:52→20:17)
[2019-01-17] MEDS: PROTONIX IV SCH ×4 (00:52→23:18)
[2019-01-17] MEDS: CLINIMIX E 4.25%-5% SOLUTION 1,000 ML IV SCH ×3 (02:57→23:18)
[2019-01-17] MEDS: DUONEB (A & A) INH SCH ×4 (03:15→21:23)
[2019-01-17] MEDS ORDERED: LOPRESSOR IV ONE ×2 (04:54→05:13)
[2019-01-17] MEDS ORDERED: NS 500 ML IV ONE ×2 (04:57→06:41)
[2019-01-17] MEDS ORDERED: LOPRESSOR IV SCH (05:00)
[2019-01-17 05:18] LABS: HEMOGLOBIN 14.4 g/dL (12.0-16.0)
[2019-01-17] MEDS ORDERED: LOPRESSOR IV PRN ×2 (05:18→06:53)
[2019-01-17] MEDS ORDERED: LANOXIN IV ONE (05:44)
[2019-01-17] MEDS: HUMULIN R SUBQ SCH ×4 (06:29→20:16)
[2019-01-17] MEDS ORDERED: CARDIZEM IV ONE (06:41)
[2019-01-17] MEDS ORDERED: CARDIZEM 125/NS 125 MG/125 ML IVPB IV SCH (06:41)
--- NOTE | 2019-01-17 06:52 | GENERAL SURGERY PROGRESS NOTE ---
DATE: 01/17/2019 SUBJECTIVE: The patient did have a run of heart rate up into the 170s and 180s. She is actively being transported up to the CICU. The patient is currently without any complaints. She tolerated her lysis of adhesions yesterday. OBJECTIVE: VITAL SIGNS: The patient is currently afebrile. Her heart rate has been anywhere to the 180s. Blood pressure remains stable. GENERAL: No acute distress. CARDIOVASCULAR: Tachycardic. LUNGS: Grossly clear. ABDOMEN: Soft, appropriately tender. LABORATORY DATA: Hematocrit is 48. Troponins are pending. ASSESSMENT AND PLAN: 78-year-old postoperative day #1 from exploratory laparotomy with lysis of adhesions now with tachycardia. Tachycardia: Given this, she is being transferred up to the CICU. Agree with this. I have ordered troponins. We will see what the results show. Hospitalists are aware and monitoring her. From a surgical [id number], we will keep the NG tube in place and monitor her closely. cc: Sebastien Roblero MD
[2019-01-17] MEDS: PERIDEX MT SCH ×2 (08:50→20:17)
[2019-01-17] MEDS: DULCOLAX PR SCH (08:51)
[2019-01-17] MEDS: GYNE-LOTRIMIN VAGINAL CREAM VAG SCH ×2 (08:51→20:16)
[2019-01-17] MEDS: LANOXIN IV SCH (09:40)
[2019-01-17 10:01] LABS: AGAP 15; ALB/GLOB RATIO 1.5; ALBUMIN 3.7 g/dL (3.5-5.0); ALKALINE PHOSPHATASE 53 U/L (32-104); BUN 22 mg/dL (8-22); CALCIUM 9.4 mg/dL (8.8-10.2); CHLORIDE 112 mmol/L (98-107); COSMO 316; CREATININE 0.7 mg/dL (0.5-0.9); ESTIMATED GFR > 60; GLUCOSE 288 mg/dL (70-104); GOT 11 U/L (10-30); GPT 13 U/L (10-36); POTASSIUM 4.5 mmol/L (3.5-5.1); SODIUM 152 mmol/L (136-145); TCO2 25 mmol/L (25-35); TOTAL BILIRUBIN 0.52 mg/dL (0.20-1.00); TOTAL PROTEIN 6.2 g/dL (6.3-8.3)
--- NOTE | 2019-01-17 10:06 | PROGRESS NOTE ---
DATE: 01/17/2019 Ms. Parham has an NG tube in. She is awake. Says her tummy is sore, but otherwise I think she is more comfortable. OBJECTIVE: VITAL SIGNS: Temp 99.2 degrees, pulse 104, respirations 18, blood pressure 118/61. HEENT: Pupils are equal and round. LUNGS: Clear in all lung rosales. CARDIOVASCULAR: Regular rhythm and rate without murmur or S3. ABDOMEN: Absent bowel sounds. Urine output was 2200. No pedal edema. Blood sugars 334, 271, 248. ASSESSMENT AND PLAN: 1. Postop day 1 exploratory laparotomy with lysis of adhesions. She did have some tachycardia. Dr. Garrido performed the surgery. 2. History of diabetes mellitus type 2. Continue sliding scale, pattern sugars. 3. Hypertension. 4. Tachycardia. EKG back from the was normal sinus rhythm. Even though she went into atrial fibrillation yesterday, she converted back into sinus rhythm early this morning. Review of her orders: She got a dose of Cardizem. Her lab this morning: Hematocrit 48, hemoglobin 14. Chemistries: We will check a Chem 12 and magnesium this morning. Review of her orders: She is ordered Lopressor for heart rate if it gets elevated. We will keep her on Zosyn 3.375 grams IV q.6 and she got one dose of 350 mcg of Digoxin. I will go ahead and continue 250 mcg p.o. daily. cc: Khurram Byrd MD
[2019-01-17] MEDS ORDERED: GYNE-LOTRIMIN VAGINAL CREAM VAG SCH (21:00)
[2019-01-18] MEDS: PROTONIX IV SCH ×2 (01:09→11:54)
[2019-01-18] MEDS: ZOSYN 3.375 GM in NS 50 ML IV SCH ×4 (02:28→22:18)
[2019-01-18] MEDS: DUONEB (A & A) INH SCH ×4 (03:31→21:00)
[2019-01-18 06:13] LABS: AGAP 12; ALB/GLOB RATIO 1.2; ALBUMIN 3.5 g/dL (3.5-5.0); ALKALINE PHOSPHATASE 52 U/L (32-104); BUN 20 mg/dL (8-22); CALCIUM 9.1 mg/dL (8.8-10.2); CHLORIDE 110 mmol/L (98-107); COSMO 300; CREATININE 0.6 mg/dL (0.5-0.9); ESTIMATED GFR > 60; GLUCOSE 227 mg/dL (70-104); GOT 11 U/L (10-30); GPT 10 U/L (10-36); MAGNESIUM 2.2 mg/dL (1.5-2.7); POTASSIUM 3.9 mmol/L (3.5-5.1); SODIUM 146 mmol/L (136-145); TCO2 24 mmol/L (25-35); TOTAL BILIRUBIN 0.58 mg/dL (0.20-1.00); TOTAL PROTEIN 6.5 g/dL (6.3-8.3)
--- NOTE | 2019-01-18 06:19 | GENERAL SURGERY PROGRESS NOTE ---
DATE: 01/18/2019 SUBJECTIVE: Patient doing okay. She was moved up to the CIC yesterday secondary to significant tachycardia, that has improved. She is not feeling sick to her stomach. She had a small bowel movement. OBJECTIVE: Vital Signs: Patient is currently afebrile. Her vital signs are stable. General: No acute distress. Cardiovascular: Regular rate and rhythm. Lungs: Grossly clear. Abdomen: Soft. Dressing intact. Bowel sounds auscultated. ASSESSMENT AND PLAN: A 78-year-old female status post exploratory laparotomy and lysis of adhesions. Postoperative state at this time. She is currently postoperative day #2. We will remove her NG and let her have clear sips of water. Monitor closely. cc: Sebastien Roblero MD
[2019-01-18] MEDS: HUMULIN R SUBQ SCH ×4 (06:45→22:07)
--- NOTE | 2019-01-18 07:12 | PROGRESS NOTE ---
DATE: 01/18/2019 SUBJECTIVE: Ms Parham is feeling much better. She did pass a little bit of soft stool. She has not reported any flatus or gas at this point. She is much more comfortable. She is drinking a little bit water, but doing it slowly. Her NG tube is out. OBJECTIVE: Vital signs: Temp 98.4 degrees, pulse 103, respirations 18, blood pressure 152/79. HEENT: Pupils are equal round. Lungs: Clear in all lung rosales. Cardiovascular: Regular rate without murmur or S3. Genitourinary: Urine output is 2200 mL. LABORATORIES: Blood sugar 248, 263, 228. Chemistries: Sodium 146, potassium 3.9, chloride 110, BUN 20, creatinine 0.6. Blood sugar 223, 263, 227, 228. ASSESSMENT/PLAN: 1. A 78-year-old status post exploratory laparotomy, lysis of adhesions for small-bowel obstruction. Seems to be making good progress. Awaiting return of peristalsis and, hopefully, can advance her diet. 2. Diabetes mellitus type 2. Sugar is under good control. 3. Hypertension. 4. Tachycardia. Appears to remain in sinus rhythm. Blood sugars running consistently around 220. She is on a sliding scale. She is getting Clinimix at 85 mL/h. I put her on digoxin 250 mcg IV daily. She did have an episode of atrial fibrillation with slightly rapid ventricular rate. She is on Zosyn 3.375 g IV q.6 hours. Hopefully, we can stop that soon, [place], and she is on Protonix 40 mg q.12 hours. cc: Khurram Byrd MD
[2019-01-18] MEDS: PERIDEX MT SCH ×2 (08:36→22:17)
[2019-01-18] MEDS: LANOXIN IV SCH (08:37)
[2019-01-18] MEDS: DULCOLAX PR SCH (08:38)
[2019-01-18] MEDS: MORPHINE IV PRN (12:24)
[2019-01-18] MEDS: CLINIMIX E 4.25%-5% SOLUTION 1,000 ML IV SCH (13:09)
[2019-01-18] MEDS: GYNE-LOTRIMIN VAGINAL CREAM VAG SCH (22:17)
[2019-01-19] MEDS: CLINIMIX E 4.25%-5% SOLUTION 1,000 ML IV SCH ×2 (00:29→12:09)
[2019-01-19] MEDS: MORPHINE IV PRN ×2 (00:50→21:49)
[2019-01-19] MEDS: DUONEB (A & A) INH SCH ×4 (03:29→22:20)
[2019-01-19] MEDS: ZOSYN 3.375 GM in NS 50 ML IV SCH (04:21)
[2019-01-19] MEDS: PROTONIX IV SCH ×2 (04:22→15:49)
[2019-01-19] MEDS: HUMULIN R SUBQ SCH ×4 (06:27→21:14)
[2019-01-19] MEDS ORDERED: BLISTEX MEDICATED BERRY LIP BALM TOP ONE (07:02)
--- NOTE | 2019-01-19 07:22 | EKG Report ---
Test Performed on : 01/17/2019 04:45:14 AM Test Reason : Tachycardia Blood Pressure : / mmHG Vent. Rate : 171 BPM Atrial Rate : 166 BPM P-R Int : 000 ms QRS Dur : 074 ms QT Int : 276 ms P-R-T Axes : 000 035 198 degrees QTc Int : 465 ms Supraventricular tachycardia. Anterior infarct (cited on or before 14-JAN-2019) ST & T wave abnormality, consider inferior ischemia Abnormal ECG When compared with ECG of 14-JAN-2019 01:41, (Unconfirmed) Vent. rate has increased BY [address] now depressed in Lateral leads T wave inversion now evident in Inferior leads Nonspecific T wave abnormality, worse in Lateral leads Unconfirmed Result
--- NOTE | 2019-01-19 07:22 | EKG Report ---
Test Performed on : 01/17/2019 07:00:35 AM Test Reason : Confirm conversion to ST/SR Blood Pressure : / mmHG Vent. Rate : 101 BPM Atrial Rate : 101 BPM P-R Int : 154 ms QRS Dur : 074 ms QT Int : 342 ms P-R-T Axes : 039 015 042 degrees QTc Int : 443 ms Sinus tachycardia. Cannot rule out Inferior infarct , age undetermined Anterior infarct (cited on or before 14-JAN-2019) Abnormal ECG When compared with ECG of 17-JAN-2019 04:45, (Unconfirmed) Vent. rate has decreased BY [address] no longer depressed in Lateral leads T wave inversion no longer evident in Inferior leads Nonspecific T wave abnormality now evident in Anterior leads Nonspecific T wave abnormality no longer evident in Lateral leads Unconfirmed Result
[2019-01-19] MEDS: DULCOLAX PR SCH (08:38)
[2019-01-19] MEDS: LANOXIN IV SCH (08:38)
[2019-01-19] MEDS: PERIDEX MT SCH ×2 (08:38→21:48)
--- NOTE | 2019-01-19 08:40 | PROGRESS NOTE ---
DATE: 01/19/2019 SUBJECTIVE: Ms. Parham is doing better. She had a couple small stools yesterday. Does not report passing any gas rectally but her tummy does feel better. Still sore but no nausea. She has been getting up and going to the bathroom, and tolerating liquids well. PHYSICAL EXAMINATION: Vital Signs: Temperature 99.0 degrees, pulse 115, respirations 23, blood pressure 118/71. HEENT: Pupils are equal and round. Neck: No distended neck veins. Lungs: Clear in all lung rosales. Cardiovascular Examination: Regular rhythm and rate without murmur or S3. Abdomen: Soft. Positive bowel sounds. Extremities: No edema in the lower extremities. Tissue edema in her hands and feet seems to be going down well. Urine output 3700 mL. LABORATORY DATA: Blood sugar 228, 212, 199. ASSESSMENT AND PLAN: 1. Status post exploratory laparotomy, lysis of adhesions, small bowel obstruction. Making good progress. Advance diet per surgery. Continue to increase activity. Her surgical wound looks good. 2. Diabetes mellitus type 2. Sugar is under good control. 3. Hypertension. 4. Appears to be in sinus rhythm. REVIEW OF HER ORDERS: We still have her on Clinimix at 85 mL an hour, Zosyn 3.375 g IV q.6, and Lanoxin 250 mcg IV daily. I think we can stop the piperacillin and Zosyn. She did have an episode of atrial fibrillation with rapid rate. Stays in sinus rhythm at this time. I have her on digoxin 250 mcg IV daily and we may be able stop that as well. I will stop the Zosyn today. cc: Khurram Byrd MD
[2019-01-19] MEDS ORDERED: LOVENOX SUBQ SCH (17:00)
--- NOTE | 2019-01-19 17:48 | GENERAL SURGERY PROGRESS NOTE ---
DATE: 01/19/2019 SUBJECTIVE: Doing well. Bowels are functioning. She is tolerating some liquids. Heart rates have been much better controlled most of the 90s low 100s. She is asymptomatic. Denies palpitations. Blood pressure has been okay. Abdomen is soft, mildly distended and tympanic, but overall much improvement in her distention. Glucoses fluctuated mostly in the low 200s. I reviewed her orders. I will advance her to a GI soft diet today. She is receiving digoxin per the hospitalist as well as Lopressor. She is on PPI. It appears her Lovenox has been held. We will resume this. Otherwise, out of bed. We will Hep-Lock all of her fluids and peripheral nutrition and advance her diet. Hopefully, she can go home next 24 to 48 hours. cc: Vince Garrido MD
[2019-01-19] MEDS: GYNE-LOTRIMIN VAGINAL CREAM VAG SCH (21:47)
[2019-01-20] MEDS: DUONEB (A & A) INH SCH ×3 (03:36→16:00)
[2019-01-20] MEDS: PROTONIX IV SCH (06:12)
[2019-01-20] MEDS: HUMULIN R SUBQ SCH ×2 (06:12→11:17)
[2019-01-20 08:28] LABS: BASO# 0.03 X1000 (0.0-0.2); BASO% 0.3 % (0.0-0.8); EOS# 0.17 X1000 (0.0-0.7); HEMATOCRIT 41.1 % (37.0-47.0); HEMOGLOBIN 12.8 g/dL (12.0-16.0); IMM GRAN# 0.13 X1000 (0.0-0.04); IMM GRAN% 1.5 % (0.0-0.5); LYMPH# 1.77 X1000 (1.2-3.4); LYMPH% 20.4 % (20.5-51.1); MCH 28.2 PG (27-31); MCHC 31.1 g/dL (33-37); MCV 90.5 FL (81-99); MONO# 1.14 X1000 (0.11-0.59); MONO% 13.1 % (1.7-9.3); NEUT# 5.44 X1000 (1.4-6.5); NEUT% 62.7 % (42.2-75.2); PLT 188 X1000 (130-400); RBC 4.54 XMIL (4.2-5.4); WBC 8.68 X1000 (4.8-10.8)
[2019-01-20 08:42] LABS: AGAP 12; ALB/GLOB RATIO 1.3; ALBUMIN 3.4 g/dL (3.5-5.0); ALKALINE PHOSPHATASE 57 U/L (32-104); BUN 9 mg/dL (8-22); CALCIUM 8.7 mg/dL (8.8-10.2); CHLORIDE 104 mmol/L (98-107); COSMO 284; CREATININE 0.5 mg/dL (0.5-0.9); ESTIMATED GFR > 60; GLUCOSE 173 mg/dL (70-104); GOT 20 U/L (10-30); GPT 15 U/L (10-36); POTASSIUM 3.8 mmol/L (3.5-5.1); SODIUM 141 mmol/L (136-145); TCO2 25 mmol/L (25-35); TOTAL BILIRUBIN 0.48 mg/dL (0.20-1.00); TOTAL PROTEIN 6.1 g/dL (6.3-8.3)
[2019-01-20] MEDS ORDERED: LOPRESSOR PO SCH (09:00)
[2019-01-20] MEDS ORDERED: TOPROL XL PO SCH (09:00)
[2019-01-20] MEDS: PERIDEX MT SCH (09:13)
[2019-01-20] MEDS: DULCOLAX PR SCH (09:13)
[2019-01-20 15:41] VITALS: BP 145/74
--- NOTE | 2019-01-20 17:58 | GENERAL SURGERY PROGRESS NOTE ---
DATE: 01/20/2019 SUBJECTIVE: The patient is doing well. She is tolerating a diet. Bowels are functioning. She is ambulating. She is voiding. Pain is controlled. Heart rate has been well controlled, in sinus rhythm. Incision intact. Abdomen is soft. Cardiovascular: Sinus rhythm, low-grade tachycardia in the low 100s intermittently. ASSESSMENT AND PLAN: A 78-year-old female status post exploratory laparoscopy, lysis of adhesions. She is doing well. I will plan for her to go home this afternoon and see me in a week for staple removal. I discussed risks. Postop instructions: The patient was given these in written and verbal format. Given prescription for [place], Colace and Zofran and discussed postop diet of which she will continue a low residual GI soft diet. cc: Vince Garrido MD
--- NOTE | 2019-01-21 06:32 | DISCHARGE SUMMARY ---
ADMISSION DATE: 01/14/2019 DISCHARGE DATE: 01/20/2019 FINAL DISCHARGE DIAGNOSES: 1. Status post exploratory laparotomy with lysis of adhesions secondary to a small bowel obstruction. 2. Hypertension. 3. Dyslipidemia. 4. Diabetes mellitus. CONSULTATIONS: General surgery consultation with Dr. Garrido. IMAGING STUDIES: CT of the abdomen and pelvis performed on 01/14/2019 that revealed a distal small bowel obstruction. HOSPITAL COURSE: Ms. Parham is a 78-year-old female with a history of hypertension and diabetes who presented to the ER with a chief complaint of intractable nausea, vomiting, and abdominal pain. On admission, a CT of the abdomen and pelvis was done that revealed a distal small bowel obstruction. The patient was admitted to the hospitalist service, and General Surgery was consulted. The patient had an NG tube placed to low intermittent suction and was monitored closely; however, the patient's symptoms did not improve, and a small bowel follow through was performed, which revealed a severe distal small bowel obstruction. As a result, the patient was taken to the OR on 01/16/2019, at which time an exploratory laparotomy was done with lysis of adhesions. Postoperatively, the patient improved. Eventually her diet was advanced and she was able to tolerate a GI soft diet without any difficulty. She was also having bowel movements as well. The patient continued to improve clinically and was cleared for discharge on 01/20/2019. DISCHARGE MEDICATIONS: 1. Zofran 4 mg p.o. every 6 hours p.r.n. 2. Colace 100 mg p.o. twice a day. 3. Hydrochlorothiazide 25 mg p.o. daily. 4. [place] 5/325 one tablet oral daily p.r.n. for pain. 5. Metformin 500 mg p.o. daily. 6. Toprol-XL 50 mg p.o. daily. 7. Simvastatin 40 mg p.o. at bedtime. 8. Janumet amount 1 tablet oral daily. 9. Farxiga 10 mg p.o. daily. 10. Omeprazole 20 mg p.o. daily. DISCHARGE DIET: An 1800 ADA diet. ACTIVITY: As tolerated. FOLLOWUP INSTRUCTIONS: The patient will need to follow up with Dr. Garrido as scheduled by his clinic. cc: Carrie Conrad MD
== END 2019-01-20 16:45 | disposition home or self-care (01) | DRG 336 ==
LOC: P.ED 01:05 → SUATTDRO 06:58 → EDIPHOLD 06:58 → P.EDIPHOLD 07:24 → 4N 11:27 → 3S 01-17 06:19
PROVIDERS: ATTEND Internal Medicine
CPT/HCPCS: 51702; 71010; 71045; 74177; 74250; 80048; 80053; 81001; 82009; 82550; 82948; 83036; 83605; 83690; 83735; 84484; 85014; 85018; 85025; 85610; 87040; 87088; 93005; 93010; 94640; 94761; 94799; 96365; 96375; 96376; 99285; A9270; C9113; C9290; J0330; J1160; J1650; J2270; J2405; J2543; J2550; J3010; J7030; J7040; Q9966; Q9967; S0020; S0028; S0164; XXXXX

== ENCOUNTER 2019-10-22 08:26 | Inpatient (IN) ==
[2019-10-22] MEDS ORDERED: ZOSYN 4.5 GM in NS 100 ML IV ONE (08:46)
[2019-10-22] MEDS ORDERED: NS 1,000 ML IV ONE (08:46)
[2019-10-22] MEDS ORDERED: MORPHINE IV ONE ×2 (08:46→11:51)
[2019-10-22] MEDS ORDERED: ZOFRAN IV ONE (08:46)
[2019-10-22 09:06] LABS: ALLEN TEST NO; BE 5.4 mmoll (-3.0-3.0); BLOOD TYPE ARTERIAL; O2(CT) 18.3 mL/dL (15.0-23.0); O2HB 91.7 % (95.0-99.0); PCO2(98.6) 42 mmHg (35-45); PO2(98.6) 64 mmHg (60-100); SAMPLE BLOOD; SAO2 94.5 % (95.0-100.0); THB 14.2 g/dL (11.5-17.4); pH(98.6) 7.46 (7.35-7.45)
[2019-10-22 09:07] LABS: MODALITY ROOM AIR
--- NOTE | 2019-10-22 09:24 | Diag Imaging Result Doc PS360 ---
EXAM: CHEST-1 VIEW 10/22/2019 HISTORY: vomiting upper abdominal pain TECHNIQUE: AP portable at 0916 COMMENT: Compared to 01/14/2019 the inspiration is better and the lung bases are clearer. There are no focal pulmonary opacities. IMPRESSION: No evidence of acute disease. Electronically signed by Boo Montiel 10/22/2019 9:22 AM
[2019-10-22 09:52] LABS: BASO# 0.02 X1000 (0.0-0.2); BASO% 0.1 % (0.0-0.8); EOS# 0.03 X1000 (0.0-0.7); EOS% 0.2 % (0.0-10.0); HEMATOCRIT 42.9 % (37.0-47.0); HEMOGLOBIN 13.4 g/dL (12.0-16.0); IMM GRAN# 0.04 X1000 (0.0-0.04); IMM GRAN% 0.3 % (0.0-0.5); LYMPH# 1.97 X1000 (1.2-3.4); LYMPH% 14.6 % (20.5-51.1); MCH 25.6 PG (27-31); MCHC 31.2 g/dL (33-37); MCV 81.9 FL (81-99); MONO# 1.74 X1000 (0.11-0.59); MONO% 12.9 % (1.7-9.3); MPV 10.2 FL (7.4-10.4); NEUT# 9.66 X1000 (1.4-6.5); NEUT% 71.9 % (42.2-75.2); PLT 297 X1000 (130-400); RBC 5.24 XMIL (4.2-5.4); WBC 13.46 X1000 (4.8-10.8)
[2019-10-22 09:58] LABS: INR 1.09; PROTIME 14.3 Seconds (11.0-16.0)
[2019-10-22 09:59] LABS: PTT 36.2 Seconds (22.3-41.8)
[2019-10-22 10:25] LABS: URINE SOURCE CATH
[2019-10-22 10:26] LABS: BILIRUBIN URINE SMALL (NEGATIVE); BLOOD URINE NEGATIVE (NEGATIVE); COLOR YELLOW; GLUCOSE URINE NEGATIVE (NEGATIVE); KETONE URINE TRACE mg/dL (NEGATIVE); LEUKOCYTES URINE SMALL (NEGATIVE); NITRITE URINE NEGATIVE (NEGATIVE); PH URINE 5.5; PROTEIN URINE 30 mg/dL (NEGATIVE); SP GRAVITY URINE 1.027; TURBIDITY URINE CLEAR (CLEAR); UROBILINOGEN URINE 2 mg/dL (NORMAL)
[2019-10-22 10:27] LABS: UR EPITHELIAL CELLS <10 /HPF (<10); URINE BACTERIA NEGATIVE /HPF; URINE RBC <10 /HPF (<10); URINE WBC 20-40 /HPF (<10)
[2019-10-22 10:28] LABS: ALB/GLOB RATIO 1.7; ALBUMIN 4.6 g/dL (3.5-5.0); CALCIUM 9.4 mg/dL (8.8-10.2); TOTAL BILIRUBIN 0.95 mg/dL (0.20-1.00); TOTAL PROTEIN 7.3 g/dL (6.3-8.3)
--- NOTE | 2019-10-22 11:45 | Diag Imaging Result Doc PS360 ---
CT ABD/PELVIS W/IV CONT ONLY - 10/22/2019 INDICATION: abd pain and vomiting, hx of SBO COMPARISON: 01/14/2019 FINDINGS: The lung bases are clear and the heart size is normal. The gallbladder is somewhat distended similar to prior. Otherwise abdominal organs all appear normal. In the posterior left lower quadrant extending to the left side of the pelvis, there is an area of significant stool impaction of small bowel followed by a short segment stricture. This is concerning for mechanical small bowel obstruction at this point. These abnormalities were not present previously. There is very little gas and stool throughout the colon. There are several surgical clips in the presacral space stable from prior. The rectum is normal. There is trace pelvic free fluid. There are advanced degenerative changes of the spine. No acute or suspicious bony lesion. IMPRESSION: High-grade small bowel obstruction with small bowel feces and a stricture at the left lower quadrant/left pelvis. This exam was performed using automated exposure control, adjustment of mA or kV according to patient size, and/or use of iterative reconstruction technique Electronically signed by Davey Burciaga 10/22/2019 11:42 AM
[2019-10-22] MEDS ORDERED: HURRICAINE SPRAY TOP ONE (11:51)
--- NOTE | 2019-10-22 12:13 | PROVIDER DOCUMENTATION ---
This chart was entered by Monse Burnham Scribe, acting as scribe for Rohit Irene MD. HPI-Abdominal Pain/GI Problem - General Chief Complaint: Abdominal Pain Stated Complaint: constipation, abd pain Time Seen by Provider: 10/22/19 08:30 Source: patient, family, EMS Allergies/Adverse Reactions: Patient Allergies Allergy/AdvReac Type Severity Reaction Status Date / Time No Known Allergies Allergy Verified 01/14/19 01:15 Home Medications: Home Medication List Medication Instructions Recorded Confirmed Last Taken Type Dapagliflozin Propanediol [Farxiga] 10 mg PO DAILY 01/14/19 01/14/19 Unknown History Hydrochlorothiazide 25 mg PO DAILY 01/14/19 01/14/19 Unknown History Hydrocodone/APAP 5 mg/325 mg 1 tab PO DAILY PRN 01/14/19 01/14/19 Unknown History [[place]-5] Metformin HCl [Metformin HCl ER] 500 mg PO DAILY 01/14/19 01/14/19 Unknown History Metoprolol Succinate E.r. [Toprol 50 mg PO DAILY 01/14/19 01/14/19 Unknown His tory Xl] Omeprazole 20 mg PO DAILY 01/14/19 01/14/19 Unknown History Simvastatin 40 mg PO QHS 01/14/19 01/14/19 Unknown History Sitagliptin Phos/Metformin HCl 1 each PO DAILY 01/14/19 01/14/19 Unknown History [Janumet Xr 100-1,000 mg Tablet] Docusate Sodium [Colace] 100 mg PO BID #60 capsule 01/20/19 Unknown Rx Ondansetron [Zofran] 4 mg PO Q6H PRN PRN #30 tablet 01/20/19 Unknown Rx - History of Present Illness-ABD Nature of Presenting Problems: 79 yof presents to the ed with c/o abdominal pain and decreased BM for 4 dyas. pt sts has hx of SBO and in the last 2 days has had incontinence of liquid stool. pt has LUQ and lLQ tenderness and sts last normal BM was 1 week prior Abdominal Pain Onset Location: reports: LUQ, LLQ Quality of Pain: reports: cramping, fullness Severity in ED: reports: moderate Onset/Duration: reports: 4 days ago Timing: reports: still present, getting worse Activities at Onset: reports: light activity Exposure to sick contacts?: No Modifying Factors: improves with: nothing Associated Symptoms: reports: constipation, diarrhea (with minor amounts of liquid stool), nausea, vomiting. denies: back/neck pain, chest pain, fever/chills, headaches, shortness of breath Last BM: 1 week ago Dark Stools Present?: reports: none noticed Rectal Bleeding: reports: none # of Diarrhea Episodes: 0 (just has mild amounts of liquid anal leakage that is uncontrolled) Rectal Pain: reports: known hemorrhoids # of Vomiting Episodes: 3 Bruising or Bleeding Gums?: No Similar Symptoms Previously?: Yes (hx of SBO and colon cancer) Recently seen or treated by another doctor?: No Review of Systems - Adult - REVIEW OF SYSTEMS - ADULT Constitutional: denies: chills, fever Eyes: reports: no symptoms reported Ears, Nose, Mouth & Throat: reports: no symptoms reported Cardiovascular: denies: chest pain, syncope Respiratory: denies: shortness of breath, wheezing Gastrointestinal: reports: see HPI, abdominal pain, constipation, diarrhea (uncontrolled leakage), nausea, vomiting Genitourinary: reports: see HPI, incontinence (stool) Musculoskeletal: denies: back pain, neck pain Integumentary: reports: no symptoms reported Neurological: denies: dizziness/vertigo, headache/migraines Psychiatric: reports: no symptoms reported Endocrine: reports: no symptoms reported Hematologic/Lymphatic: reports: no symptoms reported Allergic/Immunologic: reports: no symptoms reported All Other Systems: Reviewed and Negative Past History - Adult - PAST MEDICAL HISTORY-ADULT Review of Records: reports: Old Records Reviewed, Nursing Assessment Review, Medications Reviewed, Social history reviewed & non-contributory. Major Childhood Illnesses: reports: denies history Cardiovascular: reports: HTN, hyperlipidemia Respiratory: reports: denies history Gastrointestinal: reports: cancer, GERD, hemorrhoids Obstetrical/Gynecological: reports: denies history Genitourinary: reports: denies history Musculoskeletal: reports: arthritis, chronic pain Neurological: reports: denies history Psychiatric: reports: denies history Endocrine/Immune: reports: denies history Other Conditions: reports: denies history - PRIOR SURGERIES/PROCEDURES Surgical/Procedure History: reports: colonoscopy, tonsillectomy, orthopedic (extremity), joint replacement, back/neck, other (hemorrhoids and SBO) - IMMUNIZATION STATUS Childhood Immunizations: See Nurse Assessment Flu Vaccine: See Nurse Assessment - FAMILY HISTORY Family History: reviewed, not pertinent - SOCIAL HISTORY Smoking: denies Substance Use: alcohol Alcohol Use Frequency: occasionally Number of drinks per typical drinking period:: 3-4 drinks Living Situation: family Physical Exam-General - PHYSICAL EXAM-ADULT Initial Vital Signs Reviewed: Yes - CONSTITUTIONAL General Appearance: appears well, alert, mild distress - EYES Eyes: PERRL/EOMI, pink conjunctivae - HEAD, EARS, NOSE, MOUTH & THROAT HENMT: moist mucous membranes - NECK Neck: non-tender, full range of motion, supple, normal inspection - RESPIRATORY Respiratory: chest non-tender, lungs clear, normal breath sounds - CARDIOVASCULAR Cardiovascular: normal peripheral pulses, tachycardia (111) - CHEST (BREASTS) Chest/Breast: deferred - GASTROINTESTINAL (ABDOMEN) Abdominal Exam: soft, abnormal bowel sounds (hyperactive bs), tenderness (LUQ a nd LLQ). negative: distended, guarding, rigid, rebound - GENITOURINARY Female Genitalia/Pelvic Exam: deferred Rectal Exam: hemorrhoids (external), other (no stool in rectal vault). negative: normal rectal tone (tight) Hemoccult Exam: deferred - LYMPHATIC Lymphatic: no adenopathy - MUSCULOSKELETAL Back Exam: normal inspection, no CVA tenderness, no vertebral tenderness Extremity: normal range of motion, non-tender, normal gait, normal inspection - SKIN Integumentary: normal color, normal turgor, warm/dry - NEUROLOGIC Neurologic: grossly normal - PSYCHIATRIC Psych/Mental Status: normal mood/affect, normal thought content, normal thought process, oriented x 3 Progress - PLAN OF CARE/RESULTS Progress/Plan/Lab Results: Vital Signs - 8 hr 10/22/19 08:38 10/22/19 10:46 Temperature 98.6 F Pulse Rate 111 H 86 Respiratory Rate 18 20 Blood Pressure 115/80 136/72 O2 Sat by Pulse Oximetry 94 L 94 L Laboratory Results - last 24 hr 10/22/19 10/22/19 10/22/19 08:55 09:28 09:28 WBC 13.46 H RBC 5.24 Hgb 13.4 Hct 42.9 MCV 81.9 MCH 25.6 L MCHC 31.2 L RDW Std Deviation 16.0 H Plt Count 297 MPV 10.2 Immature Gran % (Auto) 0.3 Neut % (Auto) 71.9 Lymph % (Auto) 14.6 L [place] % (Auto) 12.9 H Eos % (Auto) 0.2 Baso % (Auto) 0.1 Immature Gran # (Auto) 0.04 Neut # (Auto) 9.66 H Lymph # (Auto) 1.97 [place] # (Auto) 1.74 H Eos # (Auto) 0.03 Baso # (Auto) 0.02 PT INR PTT (Actin FS) Specimen Type ARTERIAL Sample Site R BRACHIAL pH 7.46 H pCO2 42 pO2 64 HCO3 29.0 H Base Excess 5.4 H Oxyhemoglobin 91.7 L ABG O2 Sat (Calculated) 18.3 ABG O2 Saturation 94.5 L ABG Carboxyhemoglobin 2.00 ABG Methemoglobin 1.0 Khurram Test NO A-a O2 Difference 33.0 Total Hemoglobin 14.2 Lactate 2.10 Blood Gas Modality ROOM AIR FiO2 % 21.0 Sodium 137 Potassium 4.0 Chloride 91 L Carbon Dioxide 25 Anion Gap 21 BUN 39 H Creatinine 1.0 H Estimated GFR/1.73 m2 54 BUN/Creatinine Ratio 39 Glucose 179 H Calculated Osmolality 288 Calcium 9.4 Total Bilirubin 0.95 AST 18 ALT 16 Alkaline Phosphatase 63 Creatine Kinase 66 Troponin T Total Protein 7.3 Albumin 4.6 Globulin 2.7 Albumin/Globulin Ratio 1.7 Plasma Lactate Urine Source Urine Color Urine Turbidity Urine pH Ur Specific [place] Urine Protein Ur Glucose (Stick) Ur Ketones (Stick) Urine Blood Urine Nitrite Urine Bilirubin Urobilinogen Dipstick Urine Leukocytes Urine WBC (Auto) Urine RBC (Auto) U Epithel Cells (Auto) Urine Bacteria (Auto) Blood Type Antibody Screen 10/22/19 10/22/19 10/22/19 09:28 09:28 09:28 WBC RBC Hgb Hct MCV MCH MCHC RDW Std Deviation Plt Count MPV Immature Gran % (Auto) Neut % (Auto) Lymph % (Auto) [place] % (Auto) Eos % (Auto) Baso % (Auto) Immature Gran # (Auto) Neut # (Auto) Lymph # (Auto) [place] # (Auto) Eos # (Auto) Baso # (Auto) PT 14.3 INR 1.09 PTT (Actin FS) 36.2 Specimen Type Sample Site pH pCO2 pO2 HCO3 Base Excess Oxyhemoglobin ABG O2 Sat (Calculated) ABG O2 Saturation ABG Carboxyhemoglobin ABG Methemoglobin Khurram Test A-a O2 Difference Total Hemoglobin Lactate Blood Gas Modality FiO2 % Sodium Potassium Chloride Carbon Dioxide Anion Gap BUN Creatinine Estimated GFR/1.73 m2 BUN/Creatinine Ratio Glucose Calculated Osmolality Calcium Total Bilirubin AST ALT Alkaline Phosphatase Creatine Kinase Troponin T < 0.010 Total Protein Albumin Globulin Albumin/Globulin Ratio Plasma Lactate Urine Source Urine Color Urine Turbidity Urine pH Ur Specific [place] Urine Protein Ur Glucose (Stick) Ur Ketones (Stick) Urine Blood Urine Nitrite Urine Bilirubin Urobilinogen Dipstick Urine Leukocytes Urine WBC (Auto) Urine RBC (Auto) U Epithel Cells (Auto) Urine Bacteria (Auto) Blood Type O POSITIVE Antibody Screen NEGATIVE 10/22/19 10/22/19 09:28 10:13 WBC RBC Hgb Hct MCV MCH MCHC RDW Std Deviation Plt Count MPV Immature Gran % (Auto) Neut % (Auto) Lymph % (Auto) [place] % (Auto) Eos % (Auto) Baso % (Auto) Immature Gran # (Auto) Neut # (Auto) Lymph # (Auto) [place] # (Auto) Eos # (Auto) Baso # (Auto) PT INR PTT (Actin FS) Specimen Type Sample Site pH pCO2 pO2 HCO3 Base Excess Oxyhemoglobin ABG O2 Sat (Calculated) ABG O2 Saturation ABG Carboxyhemoglobin ABG Methemoglobin Khurram Test A-a O2 Difference Total Hemoglobin Lactate Blood Gas Modality FiO2 % Sodium Potassium Chloride Carbon Dioxide Anion Gap BUN Creatinine Estimated GFR/1.73 m2 BUN/Creatinine Ratio Glucose Calculated Osmolality Calcium Total Bilirubin AST ALT Alkaline Phosphatase Creatine Kinase Troponin T Total Protein Albumin Globulin Albumin/Globulin Ratio Plasma Lactate 1.6 Urine Source CATH Urine Color YELLOW Urine Turbidity CLEAR Urine pH 5.5 Ur Specific [place] 1.027 Urine Protein 30 A Ur Glucose (Stick) NEGATIVE Ur Ketones (Stick) TRACE A Urine Blood NEGATIVE Urine Nitrite NEGATIVE Urine Bilirubin SMALL A Urobilinogen Dipstick 2 A Urine Leukocytes SMALL A Urine WBC (Auto) 20-40 A Urine RBC (Auto) <10 U Epithel Cells (Auto) <10 Urine Bacteria (Auto) NEGATIVE Blood Type Antibody Screen Orders Category Date Time Status Cardiac Monitoring DIRECTED Care 10/22/19 08:45 Active IV Insertion ORDERED Care 10/22/19 08:45 Completed CHEST-1 VIEW [RAD] Stat Exams 10/22/19 08:[address] ABD/PELVIS W/IV CONT ONLY [CT] Stat Exams 10/22/19 08:46 Ordered ABG [RESP] Routine Lab 10/22/19 08:55 Completed BLOOD CULTURE [BLDCUL] Stat Lab 10/22/19 09:30 Results CBC WITH DIFF [HEME] Stat Lab 10/22/19 09:28 Completed CK PROFILE [SP CHEM] Stat Lab 10/22/19 09:28 Completed COMPREHENSIVE METABOLIC PANEL [CHEM] Stat Lab 10/22/19 09:28 Completed LACTATE, PLASMA [CHEM] Lab 10/22/19 11:45 Uncollected LACTATE, PLASMA [CHEM] Lab 10/22/19 14:45 Uncollected LACTATE, PLASMA [CHEM] Q3H Lab 10/22/19 09:28 Completed PROTIME WITH INR [COAG] Stat Lab 10/22/19 09:28 Completed PTT [COAG] Stat Lab 10/22/19 09:28 Completed TROPONIN T Stat Lab 10/22/19 09:28 Completed TYPE & SCREEN [BBK] Stat Lab 10/22/19 09:28 Completed URINALYSIS W/POSS RFLX CULT [URINALYSIS] Stat Lab 10/22/19 10:13 Completed URINE CULTURE [RM] Routine Lab 10/22/19 10:13 Received 0.9% Sodium Chloride Inj [Ns] 1,000 ml Med 10/22/19 08:46 Discontinued IV 999 mls/hr Morphine Med 10/22/19 08:46 Discontinued 2 mg IV NOW ONE Ondansetron [Zofran] Med 10/22/19 08:46 Discontinued 4 mg IV NOW ONE Piperacillin/Tazobactam [Zosyn] 4.5 gm Med 10/22/19 08:46 Discontinued 0.9% Sodium Chloride Inj [Ns] 100 ml IV NOW Result Diagrams: 10/22/19 09:28 10/22/19 09:28 - REASSESSMENT Reassessment #1 Time Reassessed: 12:02 Status: improving (decreased pain, requests medication prior to NGT placement, so will give Morphine/zofran and Hurricane Alder) - XRAY 1 XRAY: Bilateral XRAY Study: Chest Impression: See EMR Report (EXAM: CHEST-1 VIEW 10/22/2019 HISTORY: vomiting upper abdominal pain TECHNIQUE: AP portable at 0916 COMMENT: Compared to 01/14/2019 the inspiration is better and the lung bases are clearer. There are no focal pulmonary opacities. IMPRESSION: No evidence of acute disease. Electronically signed by Boo Montiel 10/22/2019 9:22 AM 10/22/19 0922 Interpreting Physician: Boo Montiel MD Dictated Date/Time: 10/22/19 0922 cc: Rohit Irene MD; Emeterio San MD) - CT/MRI 1 CT Study: Abdomen, Pelvis Impression: See EMR Report (CT ABD/PELVIS W/IV CONT ONLY - 10/22/2019 INDICATION: abd pain and vomiting, hx of SBO COMPARISON: 01/14/2019 FINDINGS: The lung bases are clear and the heart size is normal. The gallbladder is somewhat distended similar to prior. Otherwise abdominal organs all appear normal. In the posterior left lower quadrant extending to the left side of the pelvis, there is an area of significant stool impaction of small bowel followed by a short segment stricture. This is concerning for mechanical small bowel obstruction at this point. These abnormalities were not present previously. There is very little gas and stool throughout the colon. There are several surgical clips in the presacral space stable from prior. The rectum is normal. There is trace pelvic free fluid. There are advanced degenerative changes of the spine. No acute or suspicious bony lesion. IMPRESSION: High-grade small bowel obstruction with small bowel feces and a stricture at the left lower quadrant/left pelvis. This exam was performed using automated exposure control, adjustment of mA or kV according to patient size, and/or use of iterative reconstruction technique Electronically signed by Davey Burciaga 10/22/2019 11:42 AM 10/22/19 1142 Interpreting Physician: Davey Burciaga MD Dictated Date/Time: 10/22/19 1137 cc: Rohit Irene MD; Emeterio San MD) - CONSULTS/PCP/HOSPITALIST Notification #1 *Consult/PCP/Hospitalist*: dr burnham smore Time Discussed: 12:02 (will consult with hospitalist) Reason/Comments: phone consult Consult Disposition: Will see in ED, Admit #2 Consult: hospitalist paged at 1205 Time Discussed: 12:13 (Clair CRISTOBAL) Consult Disposition: Will see in ED, Admit Departure - Departure Date of Disposition Decision: 10/22/19 Time of Disposition Decision: 12:06 DIAGNOSIS: Small bowel obstruction due to postoperative adhesions Sepsis without acute organ dysfunction Qualifiers: Sepsis type: sepsis due to unspecified organism Qualified Code(s): A41.9 - Sepsis, unspecified organism Disposition: ADMITTED INPATIENT 09 Certified Medical Emergency: Emergent Condition: Fair Referrals and Follow-Ups: Emeterio San MD [Primary Care Provider] - - Critical Care Note This patient required my direct & personal management of CC.: Yes Total Time (mins): 35 (Mult calls to different providers, review of old records, mult visits to bedside, evaluation for sepsis) Critical Care Statement: This patient required my direct personal management to treat or rule out processes, the absence of which, could potentiallly result in sudden, clinically significant life or limb threatening deterioration. Attestation - Physician/ LINA Attestation Patient care was provided by Advanced Practice Provider:: No The physician spent face to face time with patient:: Yes Advanced Practice Provider documentation review:: Supervising physician onsite and consulted in the evaluation and care of this patient. The physician did have a face to face encounter with the patient. This chart was documented by the indicated scribe, (Monse Burnham Scribe) and accurately reflects the services I performed and decisions made by me, Rohit Irene MD, as attested by the provider's signature.
[2019-10-22] MEDS ORDERED: PHENERGAN IV PRN (12:24)
[2019-10-22] MEDS ORDERED: SODIUM CHLORIDE 0.9% INJ PRN (12:24)
[2019-10-22] MEDS ORDERED: OFIRMEV 1000 MG/ISOTONIC SOLN 1,000 MG/100 ML BOTTLE IV PRN (12:25)
[2019-10-22] MEDS: PROTONIX IV SCH (13:58)
[2019-10-22] MEDS: NS 1,000 ML IV SCH (13:59)
--- NOTE | 2019-10-22 16:12 | Diag Imaging Result Doc PS360 ---
CHEST-PORTABLE - 10/22/2019 3:51 PM INDICATION: confirm ng placement COMPARISON: 9:16 AM FINDINGS: There is a nasogastric tube in good position in the distal stomach. IMPRESSION: Nasogastric tube in the stomach. Electronically signed by Davey Burciaga 10/22/2019 4:10 PM
[2019-10-22] MEDS: ZOSYN 3.375 GM in NS 50 ML IV SCH ×2 (16:26→22:32)
[2019-10-22] MEDS: HUMULIN R SUBQ SCH ×2 (17:05→21:35)
[2019-10-22] MEDS: ZOFRAN IV PRN (17:46)
[2019-10-22] MEDS: MORPHINE IV PRN ×2 (17:47→22:27)
--- NOTE | 2019-10-22 20:05 | HISTORY AND PHYSICAL ---
PRIMARY CARE PROVIDER: Dr. Emeterio San. CHIEF COMPLAINT: Abdominal pain, nausea, vomiting. HISTORY OF PRESENT ILLNESS: Ms. Jil Parham is a 79-year-old female who states that ever since 1990, when she was treated for colon cancer with chemotherapy, radiation, and a colon resection, she has had issues with developing ileus along with mild small bowel obstructions that always resolved on their own. She has had issues with constipation up until she was started on metformin, and her bowel movements are pretty normal. She had a real bad spell at the end of December and in early January she had an exploratory laparotomy with lysis of adhesions secondary to the small bowel obstruction. She has felt okay ever since then, except on Saturday, which was her last formed bowel movement, then on Saturday evening she started having abdominal pain, mostly in the left lower to upper quadrant. Her last bowel movement was what she does not really feel like was a bowel movement, but it was a watery brown, small amount of liquid stool that came out along with the addition of starting to have bile emesis that started on Saturday. Progressively has gotten worse. No more bowel movements since Saturday. Continues to have worsening abdominal pain, nausea, and vomiting, so she presented to the emergency department with these complaints. CAT scan shows that she has a high-grade small bowel obstruction with small bowel feces and stricture at the left lower quadrant and left pelvis. Dr. Marie has been notified. She is going to have an NG tube placed. She will have antiemetics and pain medications along with that. She does have leukocytosis. Urinalysis appears like she could have a UTI, but she denies any urinary tract infection symptoms. Could be GI related inflammatory response. Either way, she will be on some Zosyn for that and she will also get IV fluids. PAST MEDICAL HISTORY: 1. Frequent small bowel obstructions and ileus. 2. Diabetes mellitus type 2. 3. Hyperlipidemia. 4. Hypertension. 5. GERD. 6. Colon cancer in 1990, where she had a colon resection, chemotherapy, and radiation. 7. Seasonal allergies. SURGICAL HISTORY: 1. Colon resection. 2. Lysis of adhesions and exploratory laparotomy on 01/16/2019, by Dr. Garrido. 3. Bilateral carpal tunnel. 4. Tonsillectomy and adenoidectomy. 5. Total left knee replacement. 6. Hemorrhoidectomy. SOCIAL HISTORY: Denies tobacco, alcohol, or illicit drug use. She lives at home with her of 59 years. FAMILY HISTORY: Mother had diabetes. She also had coronary disease that required coronary artery bypass grafting. Father: No medical conditions. ALLERGIES: No known drug allergies. HOME MEDICATIONS: 1. Actos 30 mg p.o. nightly. 2. Hydrochlorothiazide 25 mg p.o. nightly. 3. Simvastatin 40 mg p.o. nightly. 4. Toprol-XL 50 mg p.o. nightly. 5. Xyzal 5 mg p.o. nightly. 6. Calcium 1200 mg p.o. daily. 7. Glimepiride 4 mg p.o. twice daily. 8. Metformin 1000 mg p.o. twice daily. 9. [place] 5 one tablet p.o. daily p.r.n. 10. Omeprazole 20 mg p.o. daily. 11. Tylenol 1000 mg or 1 g p.o. daily. 12. Zofran 4 mg p.o. every 6 hours p.r.n. REVIEW OF SYSTEMS: A 14 point review of systems is complete. All are negative except for those mentioned above in HPI. PHYSICAL EXAMINATION: VITAL SIGNS: Temperature 97.6 degrees, heart rate 93, respiratory rate 12, blood pressure 132/59, O2 saturation 97% on 2 L nasal cannula. GENERAL: Ms. Jil Parham is a 79-year-old female. She is in no acute distress. She is able to answer questions appropriately. HEENT: Atraumatic, normocephalic. Pupils equal, round, and reactive to light. Extraocular movements intact. Mucous membranes are dry. NECK: Trachea midline. CARDIOVASCULAR: S1, S2. Regular rate and rhythm. No rubs, gallops, murmurs. No lower extremity edema. +2 dorsalis and radial pulses. Negative JVD or carotid bruits. PULMONARY: Clear to auscultate. Bilateral breath sounds. No accessory muscle use or work of breathing noted. GI: Soft. Tender in the left lower quadrant with very hypoactive bowel sounds. EXTREMITIES: Moves all extremities equally. Full range of motion. NEUROLOGIC: Alert and oriented x3. Follows commands. Sensory is intact. SKIN: Warm, dry, intact. LABORATORY DATA: White blood cells 13,000, hemoglobin 13, hematocrit 42, platelet count 297,000. INR is 1.09, PTT is 36.2. ABGs: pH 7.46, pCO2 42, pO2 64, bicarb 29, base excess 5.4, saturation 91 percent. Lactate 2.1. That is on room air. Sodium 137, potassium 4.0, BUN 39, creatinine is 1.0, glucose 179, calcium 9.4, bilirubin 0.95, AST 18, ALT 16, CK 66, troponin less than 0.01. Albumin is 4.6. Serum lactate 1.6 and 1.8. Urinalysis: 30 protein, trace ketones, small bilirubin, 2 urobilinogen, small leukocytes, 20 to 40 white blood cells. IMAGIN. Chest x-ray: No evidence of acute disease. 2. Abdominal pelvic CT: High-grade small bowel obstruction with small bowel feces and a structure at the left lower quadrant and left pelvis. ASSESSMENT AND PLAN: 1. Small bowel obstruction with recent lysis of adhesions and small bowel obstruction back in December. She has a new one and so General Surgery has been consulted. Nasogastric tube will be placed. She has antiemetics and pain medication has been added intravenously. 2. Diabetes mellitus type 2. Will do patterned blood glucoses and sliding scale insulin. 3. Hyperlipidemia. Hold home medications. 4. Hypertension. She is on Toprol. We may have to add some scheduled intravenous metoprolol or Lopressor. She is not tachycardic at the moment and her blood pressure is stable in the 130s. 5. Gastroesophageal reflux disease. Intravenous Protonix. 6. Deep venous thrombosis prophylaxis. Sequential compression devices for now. Dictated by RASHID Tariq for Wiley Benjamin MD cc: RASHID Tariq MD Pt seen and examined with rashid; she has had abdominal pain, n/v for 3 days; has hx of sbo previously which required ex lap; abdomen is soft, distended; hypoactive bowel sounds; she has recurrent SBO; will place NGT and get surgical consultation and follow MTDD
[2019-10-23] MEDS: PROTONIX IV SCH ×2 (00:05→12:41)
[2019-10-23] MEDS: SODIUM CHLORIDE 0.9% INJ SCH ×2 (00:05→12:40)
--- NOTE | 2019-10-23 03:13 | GENERAL SURGERY CONSULTATION ---
DATE: 10/22/2019 REASON FOR CONSULTATION: Bowel obstruction. CHIEF COMPLAINT: Nausea, vomiting. HISTORY OF PRESENT ILLNESS: This is a 79-year-old female who underwent exploratory laparotomy in 12/2018. She had a history of colon cancer and a bowel resection for that. She presented with approximately 72 hours of abdominal distention, decrease in bowel movements, and bilious emesis. She came to the ER where a CT scan was obtained that showed bowel obstruction. PAST MEDICAL HISTORY: Diabetes, hypertension, hyperlipidemia, history of colon cancer. PAST SURGICAL HISTORY: She had a colon resection and a vaginal hysterectomy, as well as exploratory laparotomy, lysis of adhesions. SOCIAL HISTORY: No tobacco, alcohol or drugs. She is and her is here with her. REVIEW OF SYSTEMS: A 10-point review of systems is negative other than what is mentioned the HPI. FAMILY HISTORY: Reviewed and noncontributory. PHYSICAL EXAMINATION: Vital Signs: She is afebrile, pulse 93, blood pressure 132/59, oxygen saturation is 97% on 2 L. General: She is alert. HEENT: No scleral icterus or cervical mass. Cardiovascular: Normal rate. Pulmonary: No increased work of breathing. Abdomen: Soft. Midline incision is well healed with no hernia, nontender, mildly distended. Skin: Warm and dry. Psychiatric: Appropriate affect. Peripheral Vascular: She does have trace lower extremity edema. LABORATORY DATA: White count is 13, hematocrit is 32. Her lactate is 2.10. Creatinine is 1.0. LFTs and troponins are normal. Urinalysis does show some leukocytes. IMAGING: I reviewed her CT scan. ASSESSMENT AND PLAN: A 79-year-old female with bowel obstruction. She had within the years had an exploratory laparoscopy for bowel obstruction. We will place a nasogastric tube, continue nasogastric decompression with IV fluids. Hopefully this will resolve and she will avoid another operation. She understands the plan. She is being admitted to the Hospitalist, we will follow along. cc: Vince Garrido MD
[2019-10-23] MEDS: ZOSYN 3.375 GM in NS 50 ML IV SCH ×5 (03:52→20:30)
[2019-10-23] MEDS: MORPHINE IV PRN ×5 (04:06→19:53)
[2019-10-23] MEDS: HUMULIN R SUBQ SCH ×4 (06:47→22:40)
[2019-10-23 06:51] LABS: HEMOGLOBIN A1C 8.4 % (4.8-6.0)
[2019-10-23 06:58] LABS: BASO# 0.03 X1000 (0.0-0.2); BASO% 0.3 % (0.0-0.8); EOS# 0.21 X1000 (0.0-0.7); HEMATOCRIT 39.7 % (37.0-47.0); HEMOGLOBIN 12.1 g/dL (12.0-16.0); LYMPH# 2.24 X1000 (1.2-3.4); LYMPH% 21.4 % (20.5-51.1); MCH 26.1 PG (27-31); MCHC 30.5 g/dL (33-37); MCV 85.7 FL (81-99); MONO# 1.61 X1000 (0.11-0.59); MONO% 15.3 % (1.7-9.3); MPV 10.1 FL (7.4-10.4); PLT 221 X1000 (130-400); RBC 4.63 XMIL (4.2-5.4); RDW 16.3 % (11.5-14.5); WBC 10.49 X1000 (4.8-10.8)
[2019-10-23 07:04] LABS: AGAP 13; ALB/GLOB RATIO 1.1; ALBUMIN 3.6 g/dL (3.5-5.0); BUN 24 mg/dL (8-22); CALCIUM 8.7 mg/dL (8.8-10.2); CHLORIDE 99 mmol/L (98-107); COSMO 288; CREATININE 0.8 mg/dL (0.5-0.9); ESTIMATED GFR > 60; GLUCOSE 117 mg/dL (70-104); GOT 19 U/L (10-30); GPT 14 U/L (10-36); MAGNESIUM 1.9 mg/dL (1.5-2.7); POTASSIUM 3.5 mmol/L (3.5-5.1); SODIUM 142 mmol/L (136-145); TCO2 30 mmol/L (25-35); TOTAL PROTEIN 6.8 g/dL (6.3-8.3)
[2019-10-23 07:16] LABS: ALKALINE PHOSPHATASE 54 U/L (32-104)
--- NOTE | 2019-10-23 08:31 | Diag Imaging Result Doc PS360 ---
KUB ABDOMEN - 10/23/2019 INDICATION: sbo; ngt COMPARISON: 01/15/2019 FINDINGS: Stable surgical clips and suture lines in the pelvic soft tissues. No bowel obstruction or free air. No abnormal calcifications. There is a nasogastric tube in the distal stomach in good position. No significant constipation. 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 IMPRESSION: No acute process. Electronically signed by Davey Burciaga 10/23/2019 8:28 AM
[2019-10-23] MEDS: NS 1,000 ML IV SCH ×3 (15:00→20:07)
[2019-10-24] MEDS: PROTONIX IV SCH ×2 (01:20→13:26)
[2019-10-24] MEDS: NS 1,000 ML IV SCH ×4 (01:20→19:59)
[2019-10-24] MEDS: SODIUM CHLORIDE 0.9% INJ SCH ×2 (01:20→13:26)
[2019-10-24] MEDS: MORPHINE IV PRN ×7 (01:23→22:53)
--- NOTE | 2019-10-24 01:30 | GENERAL SURGERY PROGRESS NOTE ---
DATE: 10/23/2019 SUBJECTIVE: Feels okay. No abdominal pain, no fevers. OBJECTIVE: Vital signs: Pulse 70, blood pressure 129/56. NG tube output has been a modest amount and bilious. Abdomen: Soft, nontender. Cardiovascular: Normal rate. LABORATORY DATA: I reviewed her labs. White count 10, hematocrit 39. Creatinine is 0.8. ASSESSMENT/PLAN: A 79-year-old female with recurrent bowel obstruction. She has got an NG tube. We will continue bowel rest, NG tube, serial abdominal exams and plan on removing her tube with return of bowel function. Dr. Roblero is following the patient over the weekend. cc: Vince Garrido MD
[2019-10-24] MEDS: ZOSYN 3.375 GM in NS 50 ML IV SCH ×3 (03:37→14:46)
[2019-10-24 06:16] LABS: BASO# 0.01 X1000 (0.0-0.2); BASO% 0.1 % (0.0-0.8); EOS# 0.15 X1000 (0.0-0.7); EOS% 1.9 % (0.0-10.0); HEMATOCRIT 40.8 % (37.0-47.0); HEMOGLOBIN 12.2 g/dL (12.0-16.0); LYMPH# 1.58 X1000 (1.2-3.4); LYMPH% 20.4 % (20.5-51.1); MCH 25.8 PG (27-31); MCHC 29.9 g/dL (33-37); MCV 86.3 FL (81-99); MONO# 0.87 X1000 (0.11-0.59); MONO% 11.3 % (1.7-9.3); MPV 9.7 FL (7.4-10.4); NEUT# 5.12 X1000 (1.4-6.5); NEUT% 66.3 % (42.2-75.2); PLT 211 X1000 (130-400); RBC 4.73 XMIL (4.2-5.4); WBC 7.73 X1000 (4.8-10.8)
[2019-10-24] MEDS: ZOFRAN IV PRN (06:26)
[2019-10-24 06:53] LABS: AGAP 16; ALB/GLOB RATIO 1.3; ALBUMIN 3.8 g/dL (3.5-5.0); ALKALINE PHOSPHATASE 55 U/L (32-104); BUN 12 mg/dL (8-22); CALCIUM 9.1 mg/dL (8.8-10.2); CHLORIDE 104 mmol/L (98-107); COSMO 291; CREATININE 0.6 mg/dL (0.5-0.9); ESTIMATED GFR > 60; GLUCOSE 109 mg/dL (70-104); GOT 24 U/L (10-30); GPT 15 U/L (10-36); MAGNESIUM 1.8 mg/dL (1.5-2.7); POTASSIUM 3.3 mmol/L (3.5-5.1); SODIUM 146 mmol/L (136-145); TCO2 26 mmol/L (25-35); TOTAL BILIRUBIN 0.55 mg/dL (0.20-1.00); TOTAL PROTEIN 6.7 g/dL (6.3-8.3)
[2019-10-24] MEDS: HUMULIN R SUBQ SCH ×4 (07:31→20:03)
--- NOTE | 2019-10-24 07:50 | PROGRESS NOTE ---
DATE: 10/23/2019 SUBJECTIVE: He is still having abdominal pain, nausea. OBJECTIVE: Vital Signs: Blood pressure is 134/50, heart rate 79, respiratory rate 18, temperature 98.3 degrees. Cardiovascular: Regular rate and rhythm. Pulmonary: Bilateral breath sounds. Clear to auscultation. GI: Soft, nontender, nondistended. Bowel sounds were positive. LABORATORY DATA: White count 10, hemoglobin and hematocrit 12 and 39, platelets 221. Basic was normal. PROBLEM LIST: 1. Small bowel obstruction. Continue AYALA, NGT, small bowel. NPO, IV fluids, pain control. Repeat plain films in the morning. 2. Surgery is following diabetes. Continue sliding scale and follow closely. 3. Hypertension. Continue regular medications. DISPOSITION: Pending her clinical status. cc: Wiley Benjamin MD
--- NOTE | 2019-10-24 11:46 | Diag Imaging Result Doc PS360 ---
EXAM: ABDOMEN FLAT/UPRIGHT HISTORY: sbo TECHNIQUE: Two views COMPARISON: 10/23/2019 FINDINGS: A nasogastric tube overlies the stomach. Nonspecific bowel gas pattern. No organomegaly. There are multiple surgical clips overlying the pelvis. Mild scoliosis. Severe degenerative spine changes. IMPRESSION: No acute abnormality. Electronically signed by Jeff Domínguez 10/24/2019 11:44 AM
[2019-10-24] MEDS ORDERED: LABETALOL IV PRN (15:46)
[2019-10-24] MEDS: POTASSIUM CHLORIDE 20 MEQ/SWI 20 MEQ/100 ML IVPB IV SCH ×2 (16:30→19:55)
[2019-10-24] MEDS: ROCEPHIN 1 GM in NS 50 ML IV SCH (18:23)
[2019-10-24] MEDS: FLAGYL 500 MG/NS 500 MG/100 ML IVPB IV SCH (18:59)
--- NOTE | 2019-10-24 19:09 | GENERAL SURGERY PROGRESS NOTE ---
DATE: 10/24/2019 SUBJECTIVE: The patient says she is feeling a little bit better. She has not passed any gas. OBJECTIVE: Vital signs: The patient is currently afebrile. Her vital signs are stable.General: No acute distress. HEENT: Normocephalic, atraumatic. Pupils equal, round, reactive to light. Mucous membranes moist. Oropharynx benign. Neck supple. Trachea midline. Cardiovascular: Regular rate and rhythm. Lungs grossly clear. Abdomen is soft, nondistended. Some bowel sounds auscultated. Extremities: Moves all extremities. Neurologic grossly intact. Skin: No signs of jaundice. Vascular: All extremities perfused. LABORATORY DATA: Reviewed from yesterday. Labs from this morning are still pending. ASSESSMENT AND PLAN: A 79-year-old female with bowel obstruction. Bowel obstruction: At this time she is making some improvement but she has not had full return of bowel function. We will keep the nasogastric tube in place. She still had a significant amount of output, and await return of bowel function before we clamp it. cc: Sebastien Roblero MD
[2019-10-25] MEDS: MORPHINE IV PRN ×6 (02:07→22:50)
[2019-10-25] MEDS: FLAGYL 500 MG/NS 500 MG/100 ML IVPB IV SCH ×3 (02:07→20:35)
--- NOTE | 2019-10-25 03:05 | PROGRESS NOTE ---
DATE: 10/24/2019 INTERVAL HISTORY: No acute events overnight. Ms. Parham had significant nasogastric tube output. She has not been passing gas. She has been hypertensive intermittently. She denies any more nausea, vomiting or abdominal pain. We discussed about exam findings. She denies any urinary burning, frequency or pain. OBJECTIVE: Vital signs: Temperature 99.1 degrees, pulse 88, respiratory rate 16, blood pressure 139/61, saturating 96% on room air. On physical examination, generally does not appear in any acute distress. Oral cavity is moist. Air entry bilaterally equal. No wheeze, rhonchi or crackles. S1, S2 normal. No murmur, rub or gallop. Abdomen is soft, nontender. No bowel sounds. No lower extremity edema. She is alert and oriented x3. Her is at bedside. LABORATORY DATA: Labs suggestive of no leukocytosis; mild hypokalemia, which is currently being replenished; normal kidney function. Microbiology: Urine culture had E. coli; however, this is likely asymptomatic bacteruria. IMAGING: Abdominal x-ray suggests no acute abnormality, though she has not had any bowel movement. ASSESSMENT AND PLAN: 1. Small-bowel obstruction with prior history of colon carcinoma, status post resection in 1990. Multiple small-bowel obstructions, majority of which were managed nonoperatively, except in 12/2018 which required lysis of adhesions and exploratory laparotomy. Continue nasogastric tube under suction, since it has almost 800 mL output during daytime today. Continue intravenous fluids. Replenish potassium. Change antibiotics to ceftriaxone and metronidazole. Though her abdominal x-ray looks better, she does not have bowel sounds or has not passed gas. I will continue NPO status. Resolution of tachycardia and leukocytosis are encouraging. 2. Asymptomatic bacteriuria. No need for treatment. 3. History of essential hypertension and noninsulin-dependent diabetes mellitus type 2. Currently her blood glucose is in acceptable range. I will continue to hold her home medication and will add back as tolerated. 4. Disposition: Continue to monitor on the surgical floor. Plan of care discussed with the patient and her . Their questions have been satisfactorily answered. cc: Eagle Osorio MD
[2019-10-25] MEDS: NS 1,000 ML IV SCH ×3 (05:04→20:35)
[2019-10-25] MEDS: HUMULIN R SUBQ SCH ×4 (06:14→21:47)
[2019-10-25 07:21] LABS: BASO# 0.02 X1000 (0.0-0.2); BASO% 0.3 % (0.0-0.8); EOS# 0.21 X1000 (0.0-0.7); EOS% 2.7 % (0.0-10.0); HEMATOCRIT 39.2 % (37.0-47.0); HEMOGLOBIN 11.8 g/dL (12.0-16.0); IMM GRAN# 0.02 X1000 (0.0-0.04); IMM GRAN% 0.3 % (0.0-0.5); LYMPH# 1.49 X1000 (1.2-3.4); LYMPH% 18.9 % (20.5-51.1); MCH 26.3 PG (27-31); MCHC 30.1 g/dL (33-37); MCV 87.3 FL (81-99); MONO# 1.05 X1000 (0.11-0.59); MONO% 13.3 % (1.7-9.3); MPV 10.3 FL (7.4-10.4); NEUT# 5.11 X1000 (1.4-6.5); NEUT% 64.5 % (42.2-75.2); PLT 208 X1000 (130-400); RBC 4.49 XMIL (4.2-5.4); RDW 15.9 % (11.5-14.5)
[2019-10-25 08:07] LABS: AGAP 16; ALB/GLOB RATIO 1.8; ALBUMIN 3.9 g/dL (3.5-5.0); ALKALINE PHOSPHATASE 49 U/L (32-104); BUN 10 mg/dL (8-22); CALCIUM 9.2 mg/dL (8.8-10.2); CHLORIDE 106 mmol/L (98-107); COSMO 289; CREATININE 0.5 mg/dL (0.5-0.9); ESTIMATED GFR > 60; GLUCOSE 96 mg/dL (70-104); GOT 22 U/L (10-30); GPT 15 U/L (10-36); MAGNESIUM 1.6 mg/dL (1.5-2.7); POTASSIUM 3.5 mmol/L (3.5-5.1); SODIUM 146 mmol/L (136-145); TCO2 24 mmol/L (25-35); TOTAL BILIRUBIN 0.44 mg/dL (0.20-1.00); TOTAL PROTEIN 6.1 g/dL (6.3-8.3)
--- NOTE | 2019-10-25 10:49 | GENERAL SURGERY PROGRESS NOTE ---
DATE: 10/25/2019 SUBJECTIVE: Patient seems to be doing okay. She has not really passed gas but she is not sick to her stomach. Her NG tube output has decreased. OBJECTIVE: Vital Signs: Patient is currently afebrile. Her vital signs are stable. General: No acute distress. HEENT: Normocephalic, atraumatic. Pupils equal, round, reactive to light. Mucous membranes moist. Oropharynx benign. Neck: Supple. Trachea midline. Cardiovascular: Regular rate and rhythm. Lungs: Grossly clear. Abdomen: Soft, nondistended. Some bowel sounds auscultated, improved overall since yesterday. No peritoneal signs. Extremities: Moves all extremities. Neurologic: Grossly intact. Skin: No signs of jaundice. Vascular: All extremities perfused. LABORATORY: Reviewed from yesterday. IMAGING: Imaging with abdominal film yesterday was essentially normal. ASSESSMENT AND PLAN: A 79-year-old female with resolving small bowel obstruction. Bowel obstruction. At this time it seems to be improving, but we will keep the NG tube because she has not had definitive return of bowel function. The patient needs to mobilize a little bit more day and hopefully this will help return of bowel function. cc: Sebastien Roblero MD
[2019-10-25] MEDS: SODIUM CHLORIDE 0.9% INJ SCH (12:18)
[2019-10-25] MEDS: PROTONIX IV SCH (12:18)
[2019-10-25] MEDS: POTASSIUM CHLORIDE 20 MEQ/SWI 20 MEQ/100 ML IVPB IV SCH ×2 (16:25→18:48)
--- NOTE | 2019-10-25 17:02 | PROGRESS NOTE ---
DATE: 10/25/2019 INTERVAL HISTORY: No acute events overnight. Her hypokalemia is currently being repleted. Her vitals and labs were rather unremarkable. She has not had a return of bowel function. She continues to require a nasogastric tube with suction. Ms. Parham states that she passed a little bit of gas twice. Her NG tube had 1.3 L output yesterday and 500 mL so far today. SUBJECTIVE: She denies chest pain, shortness of breath, cough, nausea, or vomiting. She denies abdominal pain today. She has not had a bowel movement. VITALS: Temperature of 97.7 degrees, pulse 68, respiratory rate 17, blood pressure 140/60, saturating 97% room air. PHYSICAL EXAMINATION: General: Obese, not in acute distress. HEENT: Oral cavity is moist. She has an NG tube hooked up with a suction with yellowish output. Lungs: Air entry bilaterally equal. No wheeze, rhonchi, crackles. Cardiovascular: S1, S2 normal. No murmur or gallop. Abdomen: Soft, obese, nontender. No bowel sounds. No guarding or rigidity. Extremity: No lower extremity edema. Neurologic: She is alert and oriented x3. I discussed with her about coming out of bed. I discussed with the nursing team about clamping the NG tube when she is moving inside the room to allow her ambulation. LAB: Suggestive of normal CBC. BMP is also acceptable. Her hypokalemia yesterday had resolved, and she is getting some more potassium. MICROBIOLOGY: Urine culture was growing E coli. However, patient was not symptomatic. ASSESSMENT AND PLAN: 1. Small bowel obstruction with prior history of colon carcinoma status post resection in 1990. Multiple swallow obstructions, majority of which were managed nonoperatively except in December 2018 requiring adhesiolysis with exploratory laparotomy. Continue NG tube under suction since she has continuous output and has yet to have resumption of bowel function; continue intravenous fluids. I will continue intravenous ceftriaxone and metronidazole considering she had a leukocytosis, mild tachycardia on presentation, and CT scan had suspected stricture at the left lower quadrant. Surgical Team on board. I appreciate recommendation. 2. Asymptomatic bacteriuria. Does not need treatment. 3. Essential hypertension. 4. Noninsulin dependent diabetes mellitus type 2. Currently blood glucose in well controlled range. 5. Disposition. Monitor patient on surgical floor. Plan of care discussed with the patient and at bedside. Their questions have been satisfactorily answered. cc: Eagle Osorio MD
[2019-10-25] MEDS: ROCEPHIN 1 GM in NS 50 ML IV SCH ×2 (17:12→17:13)
[2019-10-25] MEDS: ZOFRAN IV PRN (17:40)
[2019-10-26] MEDS: FLAGYL 500 MG/NS 500 MG/100 ML IVPB IV SCH ×4 (02:44→18:01)
[2019-10-26] MEDS: HUMULIN R SUBQ SCH ×3 (06:17→15:55)
[2019-10-26 07:02] LABS: BASO# 0.02 X1000 (0.0-0.2); BASO% 0.2 % (0.0-0.8); EOS# 0.21 X1000 (0.0-0.7); EOS% 2.6 % (0.0-10.0); HEMATOCRIT 38.2 % (37.0-47.0); HEMOGLOBIN 11.4 g/dL (12.0-16.0); IMM GRAN# 0.03 X1000 (0.0-0.04); IMM GRAN% 0.4 % (0.0-0.5); LYMPH# 1.31 X1000 (1.2-3.4); LYMPH% 16.4 % (20.5-51.1); MCH 26.1 PG (27-31); MCHC 29.8 g/dL (33-37); MCV 87.4 FL (81-99); MONO# 0.88 X1000 (0.11-0.59); MPV 9.8 FL (7.4-10.4); NEUT# 5.56 X1000 (1.4-6.5); NEUT% 69.4 % (42.2-75.2); PLT 205 X1000 (130-400); RBC 4.37 XMIL (4.2-5.4); WBC 8.01 X1000 (4.8-10.8)
[2019-10-26 07:20] LABS: AGAP 10; ALB/GLOB RATIO 1.1; ALBUMIN 3.4 g/dL (3.5-5.0); ALKALINE PHOSPHATASE 47 U/L (32-104); BUN 11 mg/dL (8-22); CHLORIDE 109 mmol/L (98-107); COSMO 288; CREATININE 0.4 mg/dL (0.5-0.9); ESTIMATED GFR > 60; GLUCOSE 101 mg/dL (70-104); GOT 21 U/L (10-30); GPT 15 U/L (10-36); MAGNESIUM 1.6 mg/dL (1.5-2.7); POTASSIUM 3.8 mmol/L (3.5-5.1); SODIUM 145 mmol/L (136-145); TCO2 26 mmol/L (25-35); TOTAL PROTEIN 6.6 g/dL (6.3-8.3)
--- NOTE | 2019-10-26 10:09 | Diag Imaging Result Doc PS360 ---
EXAM: SMALL BOWEL SERIES ONLY 10/26/2019 HISTORY: small bowel obstruction TECHNIQUE: Small bowel series, nine images, COMMENT: Oral contrast was ingested by way of the NG tube. There is oral contrast in the right colon by 30 minutes and in the rectum by 45 minutes. There are no apparent obstructive lesions and the mucosal folds and small bowel are not thickened. There is no evidence of tenderness to palpation. IMPRESSION: No definite abnormality. Electronically signed by Boo Montiel 10/26/2019 10:07 AM
[2019-10-26] MEDS: LOVENOX SUBQ SCH (10:59)
[2019-10-26] MEDS: PROTONIX IV SCH (15:49)
[2019-10-26] MEDS: SODIUM CHLORIDE 0.9% INJ SCH (15:49)
[2019-10-26] MEDS: NS 1,000 ML IV SCH (17:59)
[2019-10-26] MEDS: ROCEPHIN 1 GM in NS 50 ML IV SCH (18:00)
--- NOTE | 2019-10-26 20:53 | PROGRESS NOTE ---
DATE: 10/26/2019 INTERVAL HISTORY: No acute events overnight. Patient underwent small bowel series today which demonstrated she had contrast which traveled through the small bowel and entered the colon. 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 SUBJECTIVE: She states she is feeling better after drinking clear liquids, which has been started today. Current vitals are temperature 98.3 degrees, pulse 80, respiratory rate 20, blood pressure 150/70, saturating 99% room air. The patient denies any chest pain, shortness of breath, any more nausea, vomiting, or abdominal cramps. She has been passing gas. She just had some clear liquids. PHYSICAL EXAMINATION: Oral cavity: Moist. Lungs: Air entry equal bilaterally. No wheeze, rhonchi, or rales. Heart: Normal S1, S2. No murmur or gallop. Abdomen: Soft, nontender. She has hypoactive bowel sounds at the time of my evaluation though. Extremities: No lower extremity edema. Neurologic: She is alert and oriented x3. I encouraged her to have physical activity. LABS: CBC is unremarkable. BMP is also largely unremarkable. I will stop intravenous fluids. ASSESSMENT AND PLAN: 1. Small bowel obstruction, with prior history of colon carcinoma, status post resection in 1990; multiple small bowel obstructions, managed nonoperatively, except in December 2018 requiring adhesiolysis with exploratory laparotomy. Her nasogastric tube has been removed on 10/26/2019 since her small bowel obstruction appears to be resolving. Continue clear liquid diet as per surgical team's recommendation. I will stop intravenous antibiotics and intravenous fluids, and follow up with electrolytes tomorrow. 2. Asymptomatic bacteriuria. Did not need treatment. 3. Essential hypertension. I will continue her home hydrochlorothiazide and metoprolol. I will also continue her simvastatin for hyperlipidemia. 4. Noninsulin dependent diabetes mellitus. Continue sliding scale insulin. 5. Disposition. If patient continues to have good bowel movements and is able to tolerate clear liquid diet, plan is to advance her diet to softer tomorrow and possibly discharge home. She is in agreement with the plan. She is also requesting vitamin B12 level, which I will get. cc: Eagle Osorio MD
[2019-10-26] MEDS ORDERED: TOPROL XL PO SCH (21:00)
[2019-10-26] MEDS ORDERED: HYDROCHLOROTHIAZIDE PO SCH (21:00)
[2019-10-26] MEDS ORDERED: ZOCOR PO SCH (21:00)
--- NOTE | 2019-10-26 23:19 | GENERAL SURGERY PROGRESS NOTE ---
DATE: 10/26/2019 SUBJECTIVE: Doing well. She has had several large volume bowel movements today. She feels well. No abdominal pain. She is tolerating some sips. No fevers. No tachycardia. OBJECTIVE: General: She is alert. Cardiovascular: Normal rate. Abdomen: Soft, nontender, nondistended. I reviewed her small bowel follow-through that showed rapid transit of contrast into the colon. ASSESSMENT AND PLAN: This is a 79-year-old female with recurrent bowel obstruction. She has tolerated this well. We removed her NG tube. We will give her clear liquids and plan on soft diet and home in the morning. cc: Vince Garrido MD
[2019-10-27] MEDS: HUMULIN R SUBQ SCH ×2 (00:47→07:38)
[2019-10-27 07:12] LABS: AGAP 15; BUN 6 mg/dL (8-22); CALCIUM 9.4 mg/dL (8.8-10.2); CHLORIDE 104 mmol/L (98-107); COSMO 282; CREATININE 0.5 mg/dL (0.5-0.9); ESTIMATED GFR > 60; GLUCOSE 119 mg/dL (70-104); SODIUM 142 mmol/L (136-145); TCO2 23 mmol/L (25-35)
[2019-10-27 08:50] VITALS: BP 144/65
[2019-10-27] MEDS ORDERED: KLOR-CON PO ONE (09:34)
[2019-10-27] MEDS ORDERED: MAG-OX PO ONE (09:37)
[2019-10-27] MEDS ORDERED: PRILOSEC PO SCH (09:45)
[2019-10-27] MEDS ORDERED: AMARYL PO SCH (09:45)
[2019-10-27] MEDS ORDERED: GLUCOPHAGE XR PO SCH (09:45)
[2019-10-27] MEDS: LOVENOX SUBQ SCH (10:34)
--- NOTE | 2019-10-27 21:19 | GENERAL SURGERY PROGRESS NOTE ---
DATE: 10/27/2019 SUBJECTIVE: Doing well. She is tolerating her diet. No abdominal pain. Her bowels are functioning well. No fevers. No tachycardia. OBJECTIVE: General: She is alert. Cardiovascular: Normal rate. Abdomen: Soft, nontender, nondistended. Integument: Warm, dry. LABORATORY DATA: I reviewed her labs. ASSESSMENT/PLAN: A 79-year-old female with bowel obstruction. She has resolved this clinically and radiographically. She is tolerating a clear diet. We will give her a soft diet this morning. If she tolerates this, we will let her go home. She will see me in a week in followup. Discussed post bowel obstruction diet, GI soft. cc: Vince Garrido MD
--- NOTE | 2019-11-08 20:28 | DISCHARGE SUMMARY ---
ADMISSION DATE: 10/22/2019 DISCHARGE DATE: 10/27/2019 FINAL DISCHARGE DIAGNOSES: 1. Small bowel obstruction. 2. History of colon cancer status post resection. 3. Hypertension. 4. Diabetes mellitus type 2. 5. Hyperlipidemia. 6. Hypertension. CONSULTATIONS: General Surgery consultation with Dr. Garrido. IMAGING: CT of the abdomen and pelvis which revealed a high-grade small bowel obstruction with a stricture at the left lower quadrant. HOSPITAL COURSE: Ms. Parham is a 79-year-old female with a history of colon cancer status post resection, chemotherapy and radiation who presented to the ER with a chief complaint of nausea, vomiting and abdominal pain. In the ER a CT of the abdomen and pelvis was done that revealed a high-grade small bowel obstruction with a stricture of the left lower quadrant and left pelvis. The patient was admitted to the hospitalist service and General Surgery was consulted. An NG tube was placed to low intermittent suction and serial abdominal x-rays were ordered, the patient was followed closely over the course of the hospitalization, a small bowel series was done that revealed no definite abnormality and the patient improved with conservative management using an NG tube. The patient's diet was slowly advanced. The patient was ultimately cleared for discharge on 10/27/2019. DISCHARGE MEDICATIONS: No changes were made. The patient was advised to continue her home medications. DISCHARGE DIET: 1800 ADA diet. ACTIVITY: As tolerated. FOLLOWUP INSTRUCTIONS: The patient will need to follow up with Dr. San in 1 to 2 weeks. cc: Carrie Conrad MD
== END 2019-10-27 11:38 | disposition home or self-care (01) | DRG 390 ==
LOC: SUPCPDRO → ED 08:26 → SUATTDRO 13:00 → EDIPHOLD 13:00 → 4N 16:56
PROVIDERS: ATTEND Internal Medicine